=== PATIENT | female | born 1965 | race Caucasian/White ===

== ENCOUNTER → 2017-08-18 | Outpatient (CLI) | payer BC ==
--- NOTE | 2017-08-18 11:20 | US ---
EXAMINATION TYPE: US abdomen limited DATE OF EXAM: 08/18/2017 COMPARISON: NONE CLINICAL HISTORY: R10.11 Right Upper Quad Pain. RUQ pain, vomiting EXAM MEASUREMENTS: Liver Length: 14.1 cm Gallbladder Wall: 0.2 cm CBD: 0.2 cm Right Kidney: 12.4 x 4.1 x 5.6 cm Technical limitations due to patient's body habitus and large amount of overlying bowel content Pancreas: Obscured by bowel gas Liver: Obscured by overlying bowel gas. Gallbladder: no evidence of stones Evidence for sonographic Cook's sign: no CBD: wnl Right Kidney: no evidence of hydronephrosis or mass as visualized Visualized portion of liver is heterogeneously hyperechoic. Evaluation for focal masses is suboptimal due to the heterogeneity. There is oval 3.0 cm simple appearing cyst with increased through transmis aung on images saved. IMPRESSION: Suboptimal study but no gallstones or ultrasound evidence for acute cholecystitis. Probab le diffuse fatty infiltration of liver is noted.
== END | disposition home or self-care (01) ==
LOC: RADUSWWP 10:20
PROVIDERS: ATTEND Internal Medicine
DX: R10.11 Right upper quadrant pain (principal)
CPT/HCPCS: 76705

== ENCOUNTER → 2017-11-02 | Outpatient (CLI) | payer BC ==
--- NOTE | 2017-11-02 14:05 | MM ---
Reason for exam: screening (asymptomatic). Last mammogram was performed 3 years and 9 months ago. History: Patient is postmenopausal, has history of other cancer at age 47, and had first child at age 32. Family history of breast cancer in maternal aunt at age 40. Benign excisional biopsy of the left breast, December 18, 2011. Took hormonal contraceptives for 16 years beginning at age 16. Physical Findings: A clinical breast exam by your physician is recommended on an annual basis and results should be correlated with mammographic findings. MG Screening Mammo w CAD Bilateral CC and MLO view(s) were taken. Prior study comparison: September 15, 2016, mammogram. September 12, 2015, mammogram. June 21, 2013, bilateral digital screening mammo w/CAD. The breast tissue is heterogeneously dense. This may lower the sensitivity of mammography. No suspicious abnormality. No significant changes when compared with prior studies. ASSESSMENT: Negative, BI-RAD 1 RECOMMENDATION: Routine screening mammogram of both breasts in 1 year. Manage on a clinical basis with regard to left breast burning. If there is focal pain or palpable mass a diagnostic left mammogram is recommended.
== END | disposition home or self-care (01) ==
LOC: RADMAMWWP 06:57
PROVIDERS: ATTEND Obstetrics & Gynecology
DX: Z12.31 Encounter for screening mammogram for malignant neoplasm of breast (principal)
CPT/HCPCS: 77067

== ENCOUNTER → 2018-02-14 | Outpatient (CLI) | payer BC ==
--- NOTE | 2018-02-14 09:33 | USB ---
Reason for exam: clinical finding. History: Patient is postmenopausal, has history of other cancer at age 47, and had first child at age 32. Family history of breast cancer in maternal aunt at age 40. Benign excisional biopsy of the left breast, December 18, 2011. Took hormonal contraceptives for 16 years beginning at age 16. 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 US Breast LT Left complete breast ultrasound includes all four quadrants, the retroareolar region and axilla. Finding demonstrates a 0.5 x 1.4 x 0.4cm oval cluster at 1 o'clock, a 0.7 x 0.6 x 0.7cm taller than wide, mixed, hypoechoic lesion at 2 o'clock for which a biopsy is recommended, a 0.5 x 0.4 x 0.4cm oval, solid lesion at 3 o'clock, a 0.6 x 0.4 x 0.4cm oval, solid lesion at 9 o'clock and a 0.7 x 0.6 x 0.6cm oval, solid lesion at 10 o'clock. These results were verbally communicated with the patient and result sheet given to the patient on 02/14/18. ASSESSMENT: Suspicious, BI-RAD 4 RECOMMENDATION: Ultrasound core biopsy of the left breast. Called with mammographic findings and has scheduled an appointment for the patient for 03/02/18 at 3:[address] Bunch. Biopsy scheduled for 02/24/18 at 10:00. PRELIMINARY REPORT CALLED AND FAXED TO DR. BUNCH ON 02/14/18.
== END | disposition home or self-care (01) ==
LOC: RADUSWWP 06:58
PROVIDERS: ATTEND Surgery
DX: N64.4 Mastodynia (principal)

== ENCOUNTER → 2018-02-24 | Day surgery (SDC) | payer BC ==
[2018-02-24 09:35] VITALS: RESP 12
[2018-02-24 10:47] VITALS: BP 121/75; PULSE 67; TEMP 97.9
--- NOTE | 2018-02-24 11:42 | USB ---
EXAMINATION TYPE: US biopsy breast VAD LT, MG diagnostic mammo LT wo CAD DATE OF EXAM: 02/24/2018 CLINICAL HISTORY: R92.87 Abn mammo. Left breast mass for which ultrasound- guided core needle biopsy was recommended. TECHNIQUE: Ultrasound guided core biopsy of left breast. COMPARISON: 02/14/2018 FINDINGS: The procedure of ultrasound guided core biopsy was explained to the patient. Benefits, alternatives, and risks were discussed. An informed consent was then obtained. Preprocedural timeout was performed. The patient was placed in supine positioning for imaging and for the procedure. The overlying skin was prepped and draped in usual sterile fashion. 10 cc of lidocaine was used as anesthetic into the skin and an cc of lidocaine with epinephrine subcutaneous tissue up to the 0.7 x 0.7 x 0.6 cm solid appearing mass within dense fibroglandular tissue at the 2:00 location in the left breast. Under ultrasound guidance, a 12-gauge vacuum assisted biopsy gun device was used to obtain 4 core samples. Following this, a ribbon-shaped biopsy marker was left in lesion. Post procedure mammogram demonstrates appropriate placement of this biopsy marker without migration. The patient tolerated the procedure well with development of a small hematoma, but subsided with probe pressure. This was reevaluated after pressure was held by myself, Dr. Rios, sonographically with no enlargement. Additionally at this time when evaluating the hematoma a small palpable mass was felt at the 3:00 position within the left breast. Targeted sonography demonstrates a thrombosed superficial vessel away from the biopsy site. The patient was kept in the radiology department for short stay after the procedure and then discharged home in stable condition. IMPRESSION: 1. Successful, uncomplicated ultrasound guided core biopsy of a 0.7 x 0.7 x 0.6 cm mass within dense glandular tissue at the 2:00 location within the left breast, full pathology results to follow. 2. 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 Pathology Results: Malignant LEFT BREAST, NEEDLE CORE BIOPSY: INVASIVE LOBULAR CARCINOMA WITH AREAS OF TUBULAR GROWTH PATTERN. LOW GRADE LOBULAR CARCINOMA IN SITU. COARSE INTRADUCTAL MINERALIZATIONS ARE NOT IDENTIFIED. E-CADHERIN DOES NOT REACT WITH INFILTRATING OR IN-SITU CARCINOMA. CYTOKERATIN 5 /6 STAINS MYOEPITHELIAL CELLS OF LCIS BUT IS NOT REACTIVE WITH INFILTRATING CARCINOMA, IMMUNOPEROXIDASE STAIN CONTROL SECTIONS DOCUMENT GOOD PERFORMANCE. Recommendation Surgical consult of the left breast. MRI could be considered pre-operatively to evaluate extent of diseast given lobular carcinoma can be mammographically occult and may be bilateral. MTDD
== END ==
LOC: RADUSWWP 08:58
PROVIDERS: ATTEND Surgery
DX: C50.412 Malignant neoplasm of upper-outer quadrant of left female breast (principal); Z88.2 Allergy status to sulfonamides
CPT/HCPCS: 88305; 88342; 88341; 77065; 19083; A4648; J2001

== ENCOUNTER → 2018-03-09 | Day surgery (SDC) | payer BC ==
[2018-03-09 07:27] VITALS: RESP 16; TEMP 98.4; BMI 40.3
[2018-03-09 08:55] VITALS: BP 114/69; PULSE 50
--- NOTE | 2018-03-09 09:47 | USB ---
EXAMINATION TYPE: US breast aspiration single LT, US biopsy breast add'l VAD LT , US biopsy breast VAD LT, MG diagnostic mammo LT wo CAD DATE OF EXAM: 03/09/2018 CLINICAL HISTORY: R92.8 abn mammo. TECHNIQUE: Ultrasound guided core biopsy and cyst aspiration of left 1:00 breast. Core biopsy hyperechoic area left 3:00 COMPARISON: NONE FINDINGS: The procedure of ultrasound guided core biopsy was explained to the patient. Benefits, alternatives, and risks were discussed. An informed consent was then obtained. The patient was placed in supine positioning for imaging and for the procedure. The overlying skin was prepped and draped in usual sterile fashion. Lidocaine buffered with bicarbonate was used as anesthetic into the skin and subcutaneous tissue up to areas of concern within the left breast. Left breast 1:00 position: Cystic area with internal debris at the left 1:00 position was localized sonographically. 18-gauge spinal needle was introduced and approximately 0.2 cc of bloody aspirate was obtained. Procedure was then converted stereotactic core biopsy given persistent abnormality. 3 core samples were obtained followed by placement of the microclip marker. Left breast 3:00 position: Hyperechoic area left 3:00 position was localized sonographically. 3 core samples were obtained followed by placement of microclip marker device. Postprocedural mammogram demonstrates appropriate placement of clip markers. The patient tolerated the procedure well without any immediate complication. The patient was kept in the radiology department for short stay after the procedure and then discharged home in stable condition. IMPRESSION: Successful, uncomplicated ultrasound guided core biopsy of areas of concern in the left breast, full pathology results to follow. Pathology Results: Malignant BREAST, LEFT, SITE A ONE O'CLOCK, ASPIRATE: Degenerated cellular material with macrophages, clusters of bland ductal and apocrine cells consistent with fibrocystic changes. A. BREAST, LEFT, SITE A ONE O'CLOCK, CORE BIOPSY: Invasive lobular carcinoma. See Surgical Pathology Cancer Case Summary and comment. B. BREAST, LEFT, SITE B THREE O'CLOCK, CORE BIOPSY: Scanty fragments of benign breast tissue with focal fibrosis and prominent adipose tissue. See comment. Recommendation Surgical consult of the left breast. A. cyst aspiration-benign B. invasive lobular-therapy and follow up C. questionable inadequate sample verus benign-consider MRI MTDD
== END ==
LOC: RADUSWWP 07:03
PROVIDERS: ATTEND Surgery
DX: C50.412 Malignant neoplasm of upper-outer quadrant of left female breast (principal); Z88.2 Allergy status to sulfonamides
CPT/HCPCS: 88305; 88173; 88342; 88341; 77065; 76942; 19000; 19083; 19084; A4648; J2001

== ENCOUNTER → 2018-03-11 | Outpatient (CLI) | payer BC ==
--- NOTE | 2018-03-14 10:02 | USB ---
Reason for exam: clinical finding. History: Patient is postmenopausal, has history of breast cancer at age 52, has history of other cancer at age 47, and had first child at age 32. Family history of breast cancer in maternal aunt at age 40. Malignant US biopsy breast VAD LT of the left breast, February 24, 2018. Benign excisional biopsy of the left breast, December 18, 2011. Took hormonal contraceptives for 16 years beginning at age 16. Indicated problem(s): lump or thickening in the right breast. Physical Findings: Nurse Summary: left breast outer aspect bruising, tenderness, steri strips with probable 1 x 2cm hematoma near biopsy, right breast upper outer quadrant nodularity, all soft, movable tissue (nurse ts). US Breast RT Right complete breast ultrasound includes all four quadrants, the retroareolar region and axilla. Finding demonstrates no cystic or solid lesion seen. No suspicious sonographic finding. No solid or cystic mass. These results were verbally communicated with the patient and result sheet given to the patient on 03/11/18. ASSESSMENT: Negative, BI-RAD 1 RECOMMENDATION: Breast MRI. (could be considered pre-operatively)
== END | disposition home or self-care (01) ==
LOC: RADUSWWP 12:54
PROVIDERS: ATTEND Surgery
DX: C50.911 Malignant neoplasm of unspecified site of right female breast (principal)

== ENCOUNTER → 2018-03-21 | Outpatient (CLI) | payer BC ==
--- NOTE | 2018-03-22 12:35 | BMR ---
EXAMINATION TYPE: MR breast BILAT wo/w con DATE OF EXAM: 03/22/2018 COMPARISON: Exams dating back to 11/02/2017 HISTORY: Left Side Biopsy, 02/24/2018, 03/09/2018 [facility], Gadavist 11ml. Biopsy-proven invasive lobular carcinoma at the 2:00 location within the left breast with the primary mass measuring 0.7 x 0 .7 x 0.6 cm sonographically additional 1:00 left breast biopsy/aspiration-benign and 3:00 left breast biopsy demonstrating focal fibrosis, possible inadequate sample. Negative right breast ultrasound on 03/11/2018. TECHNIQUE: A series of fat and water weighted images in the long and short axis views of both breasts are obtained in conjunction with dynamic contrast MRI with subtraction technique. The patient was i njected with 11 mL intravenous Gadavist gadolinium contrast. Three-dimensional and additional postp rocessing imaging is created on independent workstation and reviewed during official interpretation o f this study. FINDINGS: The breasts are composed of heterogenous fibroglandular tissue and there is mild symmetric background parenchymal enhancement. Susceptibility artifact are noted at the 1:00, 2:00 and 3:00 positions. There is no abnormal enhancem ent at the area of cyst aspiration at the 1:00 position. Clumped nonmass enhancement is seen within t he upper outer quadrant of the left breast at middle depth extending over 3.2 cm in anterior posterio r dimension with the biopsy marker at the most posterior aspect on T1 fat-sat postcontrast series 701 image 344. This extends approximately 1.5 cm in craniocaudal dimension. Overall there is mixed enhan cement, predominantly persistent and plateau although foci of washout kinetics are also seen. Additionally approximately 5.2 cm from the nipple at the 2:30-3:00 position within the left breast 1. 9 cm anterior lateral to the abnormal enhancement from the biopsy-proven carcinoma there is a 7 mm ma ss that demonstrates suspicious type III washout kinetics. This is marked on series 701 image 363. No suspicious mass or nodule mass enhancement is seen within the right breast. Few foci with persiste nt kinetics are attributable to background parenchymal enhancement. No suspicious internal mammary, intramammary or axillary adenopathy is seen within either breast. IMPRESSION: BI-RADS [id number] left breast invasive lobular carcinoma. 1. The biopsy-proven invasive lobular carcinoma corresponds to an area of clumped nonmass enhancement in the upper outer quadrant of the left breast extending over 3.2 cm in length and 1.5 cm in cranioc audal dimension. 2. Additional suspicious 7 mm mass in the left breast approximately 1.9 cm anterior lateral to the bi opsy proven carcinoma is seen within the same quadrant suspicious for multifocal disease. No sonograp hic correlate was seen on the exam of 02/14/2018 and therefore MRI guided biopsy is recommended if marcia ast conservation therapy is pursued. 3. No evidence of bilateral suspicious internal mammary, intramammary or axillary adenopathy.
== END | disposition home or self-care (01) ==
LOC: RADMRIMAIN 20:32
PROVIDERS: ATTEND Surgery
DX: C50.412 Malignant neoplasm of upper-outer quadrant of left female breast (principal)
CPT/HCPCS: 77059; 0159T; A9581

== ENCOUNTER 2018-04-18 11:50 | Day surgery (SDC) | payer BC ==
[2018-04-18 12:31] VITALS: BP 138/58; PULSE 62; RESP 16; TEMP 98
[2018-04-18] MEDS ORDERED: ALPRAZolam 0.5 MG TAB PO STA (12:42)
--- NOTE | 2018-04-18 15:24 | BMR ---
EXAMINATION TYPE: MR breast biopsy w/vad LEFT DATE OF EXAM: 04/18/2018 COMPARISON: Exams dating back to 11/02/2017 HISTORY: Biopsy-proven invasive lobular carcinoma at the 2:00 position within the left breast. TECHNIQUE: A series of fat and water weighted images in the long and short axis views of both breasts are obtained in conjunction with dynamic contrast MRI with subtraction technique. The patient was i njected with 11.5 mL intravenous Gadavist gadolinium contrast. Three-dimensional and additional pos tprocessing imaging is created on independent workstation and reviewed during official interpretation of this study. FINDINGS: The previously seen 7 mm mass at the 2 to 3:00 position approximately 5.2 cm in the nipple and 1.9 cm anterolateral to the area of abnormal enhancement corresponding the biopsy-proven lobular carcinoma was not reproduced despite 2 runs of contrast with decreased compression on the second evaluation. Ex tensive review of the provided images was performed with no definitive corresponding abnormality. Fin dings were discussed both with the patient and the ordering physician directly after biopsy attempt. IMPRESSION: BI-RADS 6-biopsy proven left breast invasive lobular carcinoma. 1. The 7 mm MRI mass approximately 5.2 cm from the nipple located 1.9 cm anterolateral to the biopsy- proven invasive lobular carcinoma was not reproducible despite extensive evaluation. If lumpectomy is considered recommendation would be for wide excision in this area with short-term follow-up MRI post lumpectomy.
== END 2018-04-18 15:00 | disposition home or self-care (01) ==
LOC: RADMRIMAIN 11:50
PROVIDERS: ATTEND Surgery
DX: C50.912 Malignant neoplasm of unspecified site of left female breast (principal)
CPT/HCPCS: 0159T; 19085; A9581

== ENCOUNTER → 2018-11-09 | Outpatient (CLI) | payer BC ==
--- NOTE | 2018-11-09 08:09 | MM ---
Reason for exam: follow-up at short interval from prior study. Last mammogram was performed 8 months ago. History: Patient is postmenopausal, has history of breast cancer at age 52, has history of other cancer at age 47, and had first child at age 32. Family history of breast cancer in maternal aunt at age 40. MR breast biopsy w/vad LEFT of the left breast, April 18, 2018. Benign US breast aspiration single LT of the left breast, March 09, 2018. Malignant US biopsy breast VAD LT of the left breast, March 09, 2018. Malignant US biopsy breast add'l VAD LT of the left breast, March 09, 2018. Malignant US biopsy breast VAD LT of the left breast, February 24, 2018. Benign excisional biopsy of the left breast, December 18, 2011. Took hormonal contraceptives for 16 years beginning at age 16. Physical Findings: Nurse did not find any significant physical abnormalities on exam. MG 3D Diag Mammo W/Cad RT CC, MLO, XCCL, and ML view(s) were taken of the right breast. Prior study comparison: March 09, 2018, left breast MG diagnostic mammo LT wo CAD. February 24, 2018, left breast MG diagnostic mammo LT wo CAD. The breast tissue is heterogeneously dense. This may lower the sensitivity of mammography. There is no discrete abnormality. No significant new findings when compared with previous films. These results were verbally communicated with the patient and result sheet given to the patient on 11/09/18. ASSESSMENT: Negative, BI-RAD 1 RECOMMENDATION: Follow-up diagnostic mammogram of the right breast in 1 year.
== END | disposition home or self-care (01) ==
LOC: RADMAMWWP 06:49
PROVIDERS: ATTEND Obstetrics & Gynecology
DX: R92.8 Other abnormal and inconclusive findings on diagnostic imaging of breast (principal); Z85.3 Personal history of malignant neoplasm of breast
CPT/HCPCS: 77061; 77065

== ENCOUNTER → 2019-07-12 | Outpatient (CLI) | payer BC ==
--- NOTE | 2019-07-12 12:16 | USB ---
Reason for exam: clinical finding. History: Patient is postmenopausal, has history of breast cancer at age 52, has history of other cancer at age 47, and had first child at age 32. Family history of breast cancer in maternal aunt at age 40. MR breast biopsy w/vad LEFT of the left breast, April 18, 2018. Benign US breast aspiration single LT of the left breast, March 09, 2018. Malignant US biopsy breast VAD LT of the left breast, March 09, 2018. Malignant US biopsy breast add'l VAD LT of the left breast, March 09, 2018. Malignant US biopsy breast VAD LT of the left breast, February 24, 2018. Benign excisional biopsy of the left breast, December 18, 2011. Took hormonal contraceptives for 16 years beginning at age 16. Indicated problem(s): pain in the right breast. 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 US Breast RT Right complete breast ultrasound includes all four quadrants, the retroareolar region and axilla. Finding demonstrates a 0.8 x 0.7 x 0.6cm oval, hyperechoic lesion at 3 o'clock, probable lipoma, a 0.5 x 0.5 x 0.3cm oval, irregular, complex, cystic lesion at 7 o'clock, complicated cyst and a 0.4 x 0.3 x 0.3cm oval, cystic lesion at 8 o'clock, small cyst. These results were verbally communicated with the patient and result sheet given to the patient on 07/12/19. ASSESSMENT: Benign, BI-RAD 2 RECOMMENDATION: Breast MRI of the right breast. Manage patient on a clinical basis. MRI also recommended in this patient with prior central lateral lobular carcinoma. Routine screening mammogram of both breasts in 4 months. Back on schedule.
== END | disposition home or self-care (01) ==
LOC: RADUSWWP 10:11
PROVIDERS: ATTEND Surgery
DX: N64.4 Mastodynia (principal)

== ENCOUNTER → 2019-07-19 | Outpatient (CLI) | payer BC ==
--- NOTE | 2019-07-21 14:19 | BMR ---
EXAMINATION TYPE: MR breast BILAT wo/w con DATE OF EXAM: 07/19/2019 COMPARISON: Complete right breast ultrasound dated 07/12/2019. MRI of the bilateral breasts dated 03/21. Left breast biopsy dated 04/18/2018. HISTORY: Abnormal Mammo / Hx Breast Cancer/ Rt lateral side pain in breast/left side mastectomy TECHNIQUE: A series of fat and water weighted images in the long and short axis views of both breasts are obtained in conjunction with dynamic contrast MRI with subtraction technique. The patient was i njected with 12 mL intravenous Gadavist gadolinium contrast. Three-dimensional and additional postp rocessing imaging is created on independent workstation and reviewed during official interpretation o f this study. FINDINGS: Left mastectomy has been performed. There is a retropectoral left breast implant noted. The re are few nonenlarged left axillary lymph nodes are seen. No abnormal internal mammary lymph nodes o n the left. Post therapy changes are seen on the left as numerous areas of susceptibility artifact ar e seen and skin thickening, post radiation. Prominent 7 mm short axis lymph node is seen on the left on T2 axial fat sat image 30. The right breast is composed of heterogenous fibroglandular tissue demo nstrating mild background enhancement. No new suspicious enhancement is seen within the right breast. No suspicious internal mammary, intramammary, or axillary adenopathy. IMPRESSION: BI-RADS 0-incomplete. Additional imaging needed. 1. Prominent left lymph node in the axillary tail measures 7 mm in short axis. Ultrasound is recommen ded to assess for any cortical thickening. 2. Post meniscectomy change on the left. Post therapy change in the left with skin thickening. 3. No MRI evidence of malignancy within the right breast.
== END | disposition home or self-care (01) ==
LOC: RADMRIMAIN 20:53
PROVIDERS: ATTEND Surgery
DX: R92.8 Other abnormal and inconclusive findings on diagnostic imaging of breast (principal)
CPT/HCPCS: 77049; C8937; A9585

== ENCOUNTER → 2019-08-02 | Outpatient (CLI) | payer BC ==
--- NOTE | 2019-08-04 08:57 | USB ---
Reason for exam: clinical finding. History: Patient is postmenopausal, has history of breast cancer at age 52, has history of other cancer at age 47, and had first child at age 32. Family history of breast cancer in maternal aunt at age 40. MR breast biopsy w/vad LEFT of the left breast, April 18, 2018. Benign US breast aspiration single LT of the left breast, March 09, 2018. Malignant US biopsy breast VAD LT of the left breast, March 09, 2018. Malignant US biopsy breast add'l VAD LT of the left breast, March 09, 2018. Malignant US biopsy breast VAD LT of the left breast, February 24, 2018. Benign excisional biopsy of the left breast, December 18, 2011. Took hormonal contraceptives for 16 years beginning at age 16. Physical Findings: Nurse did not find any significant physical abnormalities on exam. US Breast Axilla LT Left breast axilla ultrasound demonstrates a 1.2 x 0.5 x 0.9cm lymph node at the axillary tail and a 0.7 x 0.4 x 0.7cm lymph node at the axillary tail, rounded contour, corresponds to MRI, slightly larger that MR or 03/21/18. Precautionary biopsy should be considered. These results were verbally communicated with the patient and result sheet given to the patient on 08/02/19. ASSESSMENT: Suspicious, BI-RAD 4 RECOMMENDATION: Surgical consultation and ultrasound core biopsy of the left breast. (left rounded lymph node, if biopsy is forgone 3 month follow up ultrasound would be recommended) Called office with mammographic findings and has scheduled an appointment for the patient for 08/09/19 at 2:[address] Bunch. Biopsy scheduled for 08/17/19 at 2:20. PRELIMINARY REPORT CALLED AND FAXED TO DR. BUNCH ON 08/04/19.
== END | disposition home or self-care (01) ==
LOC: RADUSWWP 14:13
PROVIDERS: ATTEND Surgery
DX: R59.9 Enlarged lymph nodes, unspecified (principal)

== ENCOUNTER → 2019-08-17 | Day surgery (SDC) | payer BC ==
[2019-08-17 13:39] VITALS: RESP 16; BMI 41.1
[2019-08-17 14:34] VITALS: BP 158/88; PULSE 78; TEMP 97.8
--- NOTE | 2019-08-17 14:35 | USB ---
EXAMINATION TYPE: US biopsy breast VAD LT DATE OF EXAM: 08/17/2019 CLINICAL HISTORY: N63 LUMP, AXILLA. TECHNIQUE: Ultrasound guided core biopsy of left axillary lymph node COMPARISON: NONE FINDINGS: The procedure of ultrasound guided core biopsy was explained to the patient. Benefits, alternatives, and risks were discussed. An informed consent was then obtained. The patient was placed in supine positioning for imaging and for the procedure. The overlying skin was prepped and draped in usual sterile fashion. Lidocaine buffered with bicarbonate was used as anesthetic into the skin and subcutaneous tissue up to area of concern in the left axillary lymph node. Under ultrasound guidance, a 12-gauge vacuum assisted biopsy gun device was used to obtain 3 core samples. Following this, a biopsy clip was left in lesion. The patient tolerated the procedure well without any immediate complication. The patient was kept in the radiology department for short stay after the procedure and then discharged home in stable condition. IMPRESSION: Successful, uncomplicated ultrasound guided core biopsy of area of concern in the left axillary lymph node , full pathology results to follow. 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 Appropriately controlled immunohistochemical studies for CAM5.6, and MINOR-3 are negative for metastatic carcinoma. CD68 shows focal sinus histiocytosis. Recommendation Follow up ultrasound of the left breast in 6 months. MTDD
== END ==
LOC: RADUSWWP 13:19
PROVIDERS: ATTEND Surgery
DX: D76.3 Other histiocytosis syndromes (principal); R92.8 Other abnormal and inconclusive findings on diagnostic imaging of breast; Z88.2 Allergy status to sulfonamides
CPT/HCPCS: 88305; 88342; 88341; 76942; 38505; J2001

== ENCOUNTER → 2019-11-24 | Outpatient (CLI) | payer BC ==
--- NOTE | 2019-11-24 08:23 | MM ---
Reason for exam: additional evaluation requested from prior study. Last mammogram was performed 1 year ago. History: Patient is postmenopausal, has history of breast cancer at age 52, has history of other cancer at age 44, history of high-risk lesion on a previous biopsy, and had first child at age 32. Family history of breast cancer in 2 maternal aunts at age 40. Benign US biopsy breast VAD LT of the left breast, August 17, 2019. Reduction of the right breast, February 2019. MR breast biopsy w/vad LEFT of the left breast, April 18, 2018. Benign US breast aspiration single LT of the left breast, March 09, 2018. Malignant US biopsy breast VAD LT of the left breast, March 09, 2018. Malignant US biopsy breast add'l VAD LT of the left breast, March 09, 2018. Malignant US biopsy breast VAD LT of the left breast, February 24, 2018. Benign excisional biopsy of the left breast, December 18, 2011. Mastectomy of the left breast. Took hormonal contraceptives for 16 years beginning at age 16. Taking antineoplastic for 1 year. Physical Findings: Nurse did not find any significant physical abnormalities on exam. MG 3D Diag Mammo W/Cad RT CC and MLO view(s) were taken of the right breast. Prior study comparison: November 09, 2018, right breast MG 3d diag mammo w/cad RT. March 09, 2018, left breast MG diagnostic mammo LT wo CAD. November 02, 2017, bilateral MG screening mammo w CAD. The breast tissue is heterogeneously dense. This may lower the sensitivity of mammography. No significant new findings when compared with previous films. These results were verbally communicated with the patient and result sheet given to the patient on 11/24/19. ASSESSMENT: Benign, BI-RAD 2 RECOMMENDATION: Follow-up diagnostic mammogram of the right breast in 1 year.
== END | disposition home or self-care (01) ==
LOC: RADMAMWWP 06:55
PROVIDERS: ATTEND Obstetrics & Gynecology
DX: Z08 Encounter for follow-up examination after completed treatment for malignant neoplasm (principal); Z85.3 Personal history of malignant neoplasm of breast
CPT/HCPCS: 77061; 77065

== ENCOUNTER → 2020-03-22 | Outpatient (CLI) | payer BC ==
--- NOTE | 2020-03-25 09:21 | USB ---
Reason for exam: clinical finding. History: Patient is postmenopausal, has history of breast cancer at age 52, has history of other cancer at age 44, history of high-risk lesion on a previous biopsy, and had first child at age 32. Family history of breast cancer in 2 maternal aunts at age 40. Benign US biopsy breast VAD LT of the left breast, August 17, 2019. Reduction of the right breast, February 2019. MR breast biopsy w/vad LEFT of the left breast, April 18, 2018. Benign US breast aspiration single LT of the left breast, March 09, 2018. Malignant US biopsy breast VAD LT of the left breast, March 09, 2018. Malignant US biopsy breast add'l VAD LT of the left breast, March 09, 2018. Malignant US biopsy breast VAD LT of the left breast, February 24, 2018. Benign excisional biopsy of the left breast, December 18, 2011. Mastectomy of the left breast. Took hormonal contraceptives for 16 years beginning at age 16. Taking antineoplastic for 1 year. Physical Findings: Nurse Summary: all soft, nodular, movable (nurse ts). US Breast Limited BILAT Technologist: Kaley Olea Right complete breast ultrasound includes all four quadrants, the retroareolar region and axilla. Finding demonstrates a 0.7 x 1.0 x 0.4cm shadowing lesion at 9 o'clock, difficult to see in enhanced view and a 1.0 x 0.7 x 0.5cm hyperechoic lesion at 3 o'clock. Left limited breast ultrasound including focal area of concern, retroareolar and axilla demonstrates no cystic or solid lesion seen. These results were verbally communicated with the patient and result sheet given to the patient on 03/22/20. ASSESSMENT: Suspicious, BI-RAD 4 RECOMMENDATION: Ultrasound core biopsy of the right breast. Called Dr. Cervantes's office with mammographic findings and has scheduled an appointment for the patient for 04/08/[address] Bunch. Biopsy scheduled for 04/01/20. PRELIMINARY REPORT CALLED AND FAXED TO DR. BUNCH ON 03/25/20.
== END | disposition home or self-care (01) ==
LOC: RADUSWWP 08:10
PROVIDERS: ATTEND Obstetrics & Gynecology
DX: R92.8 Other abnormal and inconclusive findings on diagnostic imaging of breast (principal); Z85.3 Personal history of malignant neoplasm of breast

== ENCOUNTER → 2020-04-01 | Day surgery (SDC) | payer BC ==
[2020-04-01 09:48] VITALS: RESP 16; TEMP 98.6
[2020-04-01 11:28] VITALS: BP 125/76; PULSE 60
--- NOTE | 2020-04-01 12:01 | USB ---
EXAMINATION TYPE: US biopsy breast VAD RT, MG post biopsy diagnostic mammo RT wo CAD DATE OF EXAM: 04/01/2020 CLINICAL HISTORY: 54-year-old female R92.8 ABN MAMMO. Personal history of left breast cancer status post mastectomy and breast reconstruction. TECHNIQUE: Ultrasound guided core biopsy of the right breast. COMPARISON: 03/22/2020 FINDINGS: The procedure of ultrasound guided core biopsy was explained to the patient. Benefits, alternatives, and risks were discussed. An informed consent was then obtained. The intended biopsy targeted at the 9:00 position was identified. Again, we note that this is most apparent on radial scanning but becomes less defined on antiradial scanning. The 3:00 echogenic area likely represents a lipoma and should be reassessed in 6 months. The patient was placed in supine positioning for imaging and for the procedure. The overlying skin was prepped and draped in usual sterile fashion. Lidocaine was used as anesthetic into the skin and subcutaneous tissue up to area of concern in the 9:00 right breast. Under ultrasound guidance, a 13-gauge vacuum-assisted mammotome Elite biopsy gun device was used to obtain 5 core samples. Following this, a coil clip was left in lesion. The patient tolerated the procedure well without any immediate complication. The patient was kept in the radiology department for short stay after the procedure and then discharged home in stable condition. Postbiopsy mammogram shows clip at the 9 to 10:00 position. IMPRESSION: Successful, uncomplicated ultrasound guided core biopsy of area of concern in the 9:00 right breast, full pathology results to follow. Note that this area becomes less defined on antiradial scanning. Six-month follow-up ultrasound will be recommended for the 3:00 echogenic lesion, likely lipoma. Pathology Results: Benign RIGHT BREAST LESION AT 9:00, NEEDLE CORE BIOPSIES: Fibrocystic spectrum disease in dense fibrous breast parenchyma. Calcium oxalate crystals seen. Recommendation Follow up mammogram of the right breast in 6 months. SHANTANUD
== END ==
LOC: RADUSWWP 09:24
PROVIDERS: ATTEND Surgery
DX: N60.11 Diffuse cystic mastopathy of right breast (principal); Z85.3 Personal history of malignant neoplasm of breast; Z90.12 Acquired absence of left breast and nipple
CPT/HCPCS: 88305; 77065; 19083; A4648; J2001

== ENCOUNTER → 2020-10-16 | Outpatient (CLI) | payer BC ==
--- NOTE | 2020-10-16 14:52 | MM ---
Reason for exam: additional evaluation requested from prior study. Last mammogram was performed 6 months ago. History: Patient is postmenopausal, has history of breast cancer at age 52, has history of other cancer at age 44, history of high-risk lesion on a previous biopsy, and had first child at age 32. Family history of breast cancer in 2 maternal aunts at age 40. Benign US biopsy breast VAD RT of the right breast, April 01, 2020. Benign US biopsy breast VAD LT of the left breast, August 17, 2019. Reduction of the right breast, February 2019. MR breast biopsy w/vad LEFT of the left breast, April 18, 2018. Benign US breast aspiration single LT of the left breast, March 09, 2018. Malignant US biopsy breast VAD LT of the left breast, March 09, 2018. Malignant US biopsy breast add'l VAD LT of the left breast, March 09, 2018. Malignant US biopsy breast VAD LT of the left breast, February 24, 2018. Benign excisional biopsy of the left breast, December 18, 2011. Implant in the left breast. 2 mastectomies of the left breast. Took hormonal contraceptives for 16 years beginning at age 16. Taking antineoplastic for 3 years beginning at age 52. Physical Findings: Nurse Summary: 1cm nodule in the right breast at 3 o'clock (nurse mj). MG 3D Diag Mammo W/Cad RT CC and MLO view(s) were taken of the right breast. Prior study comparison: April 01, 2020, right breast MG diagnostic mammo RT wo CAD. November 24, 2019, right breast MG 3d diag mammo w/cad RT. There are scattered fibroglandular densities. Previous mammotome biopsy in the right breast. Medial palpable marker. No significant new findings when compared with previous films. These results were verbally communicated with the patient and result sheet given to the patient on 10/16/20. ASSESSMENT: Incomplete: need additional imaging evaluation, BI-RAD 0 RECOMMENDATION: Ultrasound of both breasts. (axilla)
--- NOTE | 2020-10-16 14:54 | USB ---
Reason for exam: additional evaluation requested from abnormal screening. History: Patient is postmenopausal, has history of breast cancer at age 52, has history of other cancer at age 44, history of high-risk lesion on a previous biopsy, and had first child at age 32. Family history of breast cancer in 2 maternal aunts at age 40. Benign US biopsy breast VAD RT of the right breast, April 01, 2020. Benign US biopsy breast VAD LT of the left breast, August 17, 2019. Reduction of the right breast, February 2019. MR breast biopsy w/vad LEFT of the left breast, April 18, 2018. Benign US breast aspiration single LT of the left breast, March 09, 2018. Malignant US biopsy breast VAD LT of the left breast, March 09, 2018. Malignant US biopsy breast add'l VAD LT of the left breast, March 09, 2018. Malignant US biopsy breast VAD LT of the left breast, February 24, 2018. Benign excisional biopsy of the left breast, December 18, 2011. Implant in the left breast. 2 mastectomies of the left breast. Took hormonal contraceptives for 16 years beginning at age 16. Taking antineoplastic for 3 years beginning at age 52. US Breast Limited BILAT Technologist: Kaley Olea Right complete breast ultrasound includes all four quadrants, the retroareolar region and axilla. Finding demonstrates a 0.9 x 0.9 x 0.4cm oval, hyperechoic lesion at 3 o'clock and a 0.8 x 0.7 x 0.5cm oval, hyperechoic lesion at 2 o'clock. Suggestive of lipomas, benign. Targeted scanning of left axilla shows no solid or cystic lesion. These results were verbally communicated with the patient and result sheet given to the patient on 10/16/20. ASSESSMENT: Benign, BI-RAD 2 RECOMMENDATION: Follow-up diagnostic mammogram of the right breast in 1 year. Manage on a clinical basis with regard to any suspicious palpable area.
== END | disposition home or self-care (01) ==
LOC: RADMAMWWP 12:53
PROVIDERS: ATTEND Internal Medicine
DX: C50.112 Malignant neoplasm of central portion of left female breast (principal); R92.8 Other abnormal and inconclusive findings on diagnostic imaging of breast; Z85.3 Personal history of malignant neoplasm of breast
CPT/HCPCS: 77061; 77065

== ENCOUNTER → 2020-10-23 | Outpatient (CLI) | payer BC ==
[2020-10-23 07:42] LABS: Basophils # (A) 0.1 k/uL (0-0.2); Basophils % (A) 1 %; Eosinophils # (A) 0.2 k/uL (0-0.7); Eosinophils % (A) 4 %; HCT 45.2 % (34.0-46.0); HGB 14.7 gm/dL (11.4-16.0); Lymphocytes # (A) 1.4 k/uL (1.0-4.8); Lymphocytes % (A) 27 %; MCH 27.7 pg (25.0-35.0); MCHC 32.5 g/dL (31.0-37.0); MCV 85.1 fL (80.0-100.0); Mean Platelet Volume 7.4; Monocytes # (A) 0.2 k/uL (0-1.0); Monocytes % (A) 4 %; Neutrophils # (A) 3.4 k/uL (1.3-7.7); Neutrophils % (A) 62 %; Platelet Count 241 k/uL (150-450); RBC 5.31 m/uL (3.80-5.40); RDW 13.4 % (11.5-15.5); WBC 5.5 k/uL (3.8-10.6)
[2020-10-23 12:30] LABS: African American GFR (CKD) 112.3 (60.0-200.0); Albumin 4.8 g/dL (3.80-4.90); Albumin/Globulin Ratio 2.09 (1.60-3.17); Anion Gap 10.9 mmol/L (4.00-12.00); BUN/Creat Ratio 21.43 Ratio (12.00-20.00); Carbon Dioxide 27.1 mmol/L (21.6-31.8); Chol/HDL Ratio 5.49; Globulin 2.3 g/dL (1.6-3.3); Non-African American GFR(CKD) 96.9 (60.0-200.0); Potassium 4.7 mmol/L (3.5-5.5); Total Bilirubin 0.5 mg/dL (0.3-1.2); Total Protein 7.1 g/dL (6.2-8.2)
[2020-10-23 12:40] LABS: T4, Free (Free Thyroxine) 1.9 ng/dL (0.80-1.80)
== END | disposition home or self-care (01) ==
LOC: LABWHC1 07:03
PROVIDERS: ATTEND Internal Medicine
DX: Z00.00 Encounter for general adult medical examination without abnormal findings (principal); K21.9 Gastro-esophageal reflux disease without esophagitis; E03.9 Hypothyroidism, unspecified; E55.9 Vitamin D deficiency, unspecified
CPT/HCPCS: 36415; 80053; 80061; 82306; 84439; 84443; 84481; 85025

== ENCOUNTER → 2020-10-23 | Outpatient (CLI) | payer BC ==
--- NOTE | 2020-10-23 15:16 | BD ---
EXAMINATION TYPE: Axial Bone Density DATE OF EXAM: 10/23/2020 COMPARISON: NONE CLINICAL HISTORY: 55 YR OLD FEMALE....ICD-10 CODE: C50.11 MALIGNANT NEOPLASM; BREAST Height: 65.8 Weight: 261 FRAX RISK QUESTIONS: NOTHING TO NOTE HERE RISK FACTORS HISTORY OF: Active: YES Postmenopausal woman: YES, AT AGE 47 YRS OLD Hyperparathyroidism: NO Adrenal Insufficiency: NO MEDICATIONS: Thyroid Medications: YES, SYNTHROID, FOR ABOUT 30 YRS Additional Medications: ANASTROZOLE, HX OF MASTECTOMY, LT BREAST, REFLUX MEDS, VIT D, Additional History: HX OF BREAST CANCER, LT BREAST MASTECTOMY, 2018, REFLUX, EXAM MEASUREMENTS: Bone mineral densitometry was performed using the [employer] System. Bone mineral density as measured about the Lumbar spine is: ----- L1-L4(G/cm2): 0.986 T Score Values are as follows: ----- L1: -2.9 ----- L2: -1.7 ----- L3: -1.8 ----- L4: -2.2 ----- L1-L4: -1.8 Bone mineral density FIRST BONE DENSITY AT [facility] Bone mineral density about the R hip (g/cm2): 0.990 Bone mineral density about the L hip (g/cm2): 0.980 T Score values are as follows: -----R Neck: -0.8 -----L Neck: -1.1 -----R Total: -0.1 -----L Total: -0.2 Bone mineral density FIRST BONE DENSITY AT [facility] FRAX%s: THERE IS A 5.5% CHANCE FOR A MAJOR OSTEOPOROTIC FX AND A 0.3% FOR HIP.....PROBABILITY FOR FX IN 10 YRS TIME IMPRESSION: Osteopenia (T Score between -2.5 and -1). There is slightly increased risk of fracture and the patient may be considered for treatment. Re-Screen 2-5 years. NOTE: T-SCORE=SD OF THE YOUNG ADULT MEAN.
== END | disposition home or self-care (01) ==
LOC: RADBDWWP 07:06
DX: M85.80 Other specified disorders of bone density and structure, unspecified site (principal); Z51.81 Encounter for therapeutic drug level monitoring; Z79.811 Long term (current) use of aromatase inhibitors; C50.412 Malignant neoplasm of upper-outer quadrant of left female breast
CPT/HCPCS: 77080

== ENCOUNTER → 2020-11-06 | Outpatient (CLI) | payer BC ==
--- NOTE | 2020-11-06 08:52 | CT ---
EXAMINATION TYPE: CT angio head DATE OF EXAM: 11/06/2020 COMPARISON: None HISTORY: Anesthesia of skin, eye and lip left side CT DLP: 1504.00 mGycm CONTRAST: CTA [place] with 3-D reconstruction is performed and without and with IV Contrast, patient i njected with 100 ml mL of Isovue 370. Contrast CTA of the [place] was performed 3-D reconstruction imaging obtained at a separate workstation. Vertebrobasilar system as well as intracranial portions of the internal carotid arterie s and their major tributaries are patent. I cannot exclude a small 2.4 mm aneurysm at the trifurcatio n of the left MCA. Consider MRA correlation. There is a 3.0 x 2.4 cm arachnoid cyst anterior left mid dle cranial fossa. No additional extra-axial lesions seen. Please note MRI provides greater sensitivi ty and specificity. Visualized brain appears grossly unremarkable. IMPRESSION: 1.I cannot exclude a small 2.4 mm aneurysm at the trifurcation of the left MCA. Consider MRA correlat ion. 2.There is a 3.0 x 2.4 cm arachnoid cyst anterior left middle cranial fossa.
== END | disposition home or self-care (01) ==
LOC: RADCTMAIN 07:30
PROVIDERS: ATTEND Internal Medicine
DX: I67.1 Cerebral aneurysm, nonruptured (principal); G93.0 Cerebral cysts
CPT/HCPCS: 70496; Q9967

== ENCOUNTER → 2020-12-20 | Outpatient (CLI) | payer BC | END | disposition home or self-care (01) | LOC: LABWHC1 06:54 | PROVIDERS: ATTEND Internal Medicine | DX: E03.9 Hypothyroidism, unspecified (principal) | CPT/HCPCS: 36415; 84443 ==

== ENCOUNTER → 2021-05-08 | Outpatient (CLI) | payer BC ==
--- NOTE | 2021-05-13 12:01 | USB ---
Reason for exam: clinical finding. History: Patient is postmenopausal, has history of breast cancer at age 52, has history of other cancer at age 44, history of high-risk lesion on a previous biopsy, and had first child at age 32. Family history of breast cancer in 2 maternal aunts at age 40. Benign US biopsy breast VAD RT of the right breast, April 01, 2020. Benign US biopsy breast VAD LT of the left breast, August 17, 2019. Reduction of the right breast, February 2019. MR breast biopsy w/vad LEFT of the left breast, April 18, 2018. Benign US breast aspiration single LT of the left breast, March 09, 2018. Malignant US biopsy breast VAD LT of the left breast, March 09, 2018. Malignant US biopsy breast add'l VAD LT of the left breast, March 09, 2018. Malignant US biopsy breast VAD LT of the left breast, February 24, 2018. Benign excisional biopsy of the left breast, December 18, 2011. Implant in the left breast. 2 mastectomies of the left breast. Took hormonal contraceptives for 16 years beginning at age 16. Taking antineoplastic for 3 years beginning at age 52. Physical Findings: Nurse did not find any significant physical abnormalities on exam. US Breast Limited BILAT Right complete breast ultrasound includes all four quadrants, the retroareolar region and axilla. Finding demonstrates a 6 x 4mm oval, hypoechoic lesion at 2 o'clock, slightly appears blenin on some images not definitive lesion, a 5 x 3 x 7mm oval, hyperechoic lipoma at at 2 o'clock and a 9mm previous biopsy site at 9 o'clock. Left limited breast ultrasound including focal area of concern, retroareolar and axilla demonstrates a 4 x 4mm lymph node at the axilla. These results were verbally communicated with the patient and result sheet given to the patient on 05/08/21. ASSESSMENT: Probably benign, BI-RAD 3 RECOMMENDATION: Follow-up diagnostic mammogram and ultrasound of the right breast in 6 months.
== END | disposition home or self-care (01) ==
LOC: RADUSWWP 07:34
PROVIDERS: ATTEND Family Medicine
DX: N64.89 Other specified disorders of breast (principal); Z78.0 Asymptomatic menopausal state; Z85.3 Personal history of malignant neoplasm of breast; Z80.3 Family history of malignant neoplasm of breast

== ENCOUNTER → 2021-11-13 | Outpatient (CLI) | payer BC ==
--- NOTE | 2021-11-13 11:41 | MM ---
Reason for exam: additional evaluation requested from prior study. Last mammogram was performed 1 year and 1 month ago. History: Patient is postmenopausal, has history of breast cancer at age 52, has history of high-risk lesion on a previous biopsy at age 52, has history of other cancer at age 44, and had first child at age 32. Family history of breast cancer in 2 maternal aunts at age 40. Benign US biopsy breast VAD RT of the right breast, April 01, 2020. Benign US biopsy breast VAD LT of the left breast, August 17, 2019. Reduction of the right breast, February 2019. MR breast biopsy w/vad LEFT of the left breast, April 18, 2018. Benign US breast aspiration single LT of the left breast, March 09, 2018. Malignant US biopsy breast VAD LT of the left breast, March 09, 2018. Malignant US biopsy breast add'l VAD LT of the left breast, March 09, 2018. Malignant US biopsy breast VAD LT of the left breast, February 24, 2018. Reconstruction of the left breast, 2018. Mastectomy of the left breast, 2018. Benign excisional biopsy of the left breast, December 18, 2011. Implant in the left breast. Took hormonal contraceptives for 16 years beginning at age 16. Taking antineoplastic for 3 years beginning at age 52. Physical Findings: Nurse did not find any significant physical abnormalities on exam. MG 3D Diag Mammo W/Cad RT CC, MLO, and XCCL view(s) were taken of the right breast. Prior study comparison: October 16, 2020, right breast MG 3d diag mammo w/cad RT. April 01, 2020, right breast MG diagnostic mammo RT wo CAD. There are scattered fibroglandular densities. Previous mammotome biopsy in the right breast. No significant new findings when compared with previous films. These results were verbally communicated with the patient and result sheet given to the patient on 11/13/21. ASSESSMENT: Incomplete: need additional imaging evaluation, BI-RAD 0 RECOMMENDATION: Ultrasound of the right breast.
--- NOTE | 2021-11-13 11:56 | USB ---
Reason for exam: additional evaluation requested from abnormal screening. History: Patient is postmenopausal, has history of breast cancer at age 52, has history of high-risk lesion on a previous biopsy at age 52, has history of other cancer at age 44, and had first child at age 32. Family history of breast cancer in 2 maternal aunts at age 40. Benign US biopsy breast VAD RT of the right breast, April 01, 2020. Benign US biopsy breast VAD LT of the left breast, August 17, 2019. Reduction of the right breast, February 2019. MR breast biopsy w/vad LEFT of the left breast, April 18, 2018. Benign US breast aspiration single LT of the left breast, March 09, 2018. Malignant US biopsy breast VAD LT of the left breast, March 09, 2018. Malignant US biopsy breast add'l VAD LT of the left breast, March 09, 2018. Malignant US biopsy breast VAD LT of the left breast, February 24, 2018. Reconstruction of the left breast, 2018. Mastectomy of the left breast, 2018. Benign excisional biopsy of the left breast, December 18, 2011. Implant in the left breast. Took hormonal contraceptives for 16 years beginning at age 16. Taking antineoplastic for 3 years beginning at age 52. US Breast Limited RT Right limited breast ultrasound including focal area of concern, retroareolar and axilla demonstrates a 0.8 x 0.7 x 0.4cm hyperechoic lesion at 2 o'clock, likely lipoma and a previous biopsy site with clip at 9 o'clock. The other 2 o'clock area is no longer identified. Scanned 12-3 o'clock and 9 o'clock previous biopsy site. These results were verbally communicated with the patient and result sheet given to the patient on 11/13/21. ASSESSMENT: Benign, BI-RAD 2 RECOMMENDATION: Follow-up diagnostic mammogram of both breasts in 1 year.
== END | disposition home or self-care (01) ==
LOC: RADMAMWWP 08:49
PROVIDERS: ATTEND Obstetrics & Gynecology
DX: R92.8 Other abnormal and inconclusive findings on diagnostic imaging of breast (principal); Z85.3 Personal history of malignant neoplasm of breast; Z78.0 Asymptomatic menopausal state
CPT/HCPCS: 77061; 77065

== ENCOUNTER 2021-12-03 16:51 | Emergency (ER) | payer BC ==
[2021-12-03 16:55] VITALS: TEMP 99
[2021-12-03 18:24] LABS: Basophils % (A) 1 %; Eosinophils # (A) 0.3 k/uL (0-0.7); Eosinophils % (A) 4 %; HCT 43.9 % (34.0-46.0); HGB 14.8 gm/dL (11.4-16.0); Lymphocytes # (A) 1.4 k/uL (1.0-4.8); Lymphocytes % (A) 21 %; MCH 29.6 pg (25.0-35.0); MCHC 33.8 g/dL (31.0-37.0); MCV 87.6 fL (80.0-100.0); Mean Platelet Volume 7.7; Monocytes # (A) 0.3 k/uL (0-1.0); Monocytes % (A) 4 %; Neutrophils # (A) 4.6 k/uL (1.3-7.7); Neutrophils % (A) 69 %; Platelet Count 251 k/uL (150-450); RBC 5.01 m/uL (3.80-5.40); RDW 13.9 % (11.5-15.5); WBC 6.6 k/uL (3.8-10.6)
[2021-12-03 18:34] LABS: African American GFR (CKD) >90 (>60 ml/min/1.73 sqM); Anion Gap 11 mmol/L; Blood Urea Nitrogen 14 mg/dL (7-17); Calcium 9.4 mg/dL (8.4-10.2); Carbon Dioxide 23 mmol/L (22-30); Chloride 107 mmol/L (98-107); Glucose 86 mg/dL (74-99); Non-African American GFR(CKD) >90 (>60 ml/min/1.73 sqM); Potassium 4.2 mmol/L (3.5-5.1); Sodium 141 mmol/L (137-145)
[2021-12-03 18:46] LABS: INR 0.9 (<1.2); Prothrombin Time 9.8 sec (9.0-12.0)
[2021-12-03 18:47] LABS: Partial Thromboplastin Time 18.2 sec (22.0-30.0)
--- NOTE | 2021-12-03 19:27 | CT ---
EXAMINATION TYPE: CT chest angio for PE DATE OF EXAM: 12/03/2021 COMPARISON: None HISTORY: Known knee DVT, concern for PE CT DLP: 627.7 mGycm Automated exposure control for dose reduction was used. CONTRAST: Performed with IV Contrast, patient injected with 100 mL of Isovue 370. Images obtained from the thoracic inlet to the diaphragm with IV contrast. There are Three-D postproc essed images. There is no mediastinal adenopathy. There are no hilar masses. Thoracic aorta is intact. There is no aneurysm or dissection. Ascending aorta measures 3.3 cm. There is normal contrast opacification of the pulmonary arteries. There are no filling defects. Upper abdominal soft tissues are intact. There is some mild right paraspinal interstitial infiltrate. There is no evidence of a pulmonary mass. There is no pleural effusion or pneumothorax. The thoracic spine is intact. There is degenerative hypertrophic spurring. No compression fracture. There is left breast implant noted. IMPRESSION: No evidence of pulmonary embolism. No suspicious pulmonary mass.
[2021-12-03] MEDS ORDERED: APIXABAN 5 MG TAB PO STA (19:38)
--- NOTE | 2021-12-03 19:55 | ED ---
General Adult HPI - General Chief complaint: Extremity Injury, Lower Stated complaint: DVT Time Seen by Provider: 12/03/21 17:38 Source: patient, RN notes reviewed, old records reviewed Mode of arrival: ambulatory Limitations: no limitations - History of Present Illness Initial comments: Patient is a 56-year-old female with past medical history remarkable for acid reflux, thyroid disorder as well as recent surgery on her left leg, recently having her cast removed presents emergency Department complaining of leg swelling. She was following up with her general surgeon for scheduling her colonoscopy which was complaining of left posterior knee pain as well as lower extremity swelling. States her to stay. Patient just returned from a trip to [place] flew home. She is on hormonal therapy. No history of blood clots. Denies chest pain. Does endorse a mild cough as well as occasional shortness of breath, which she states may be chronic. Denies any abdominal pain, nausea, vomiting. His no other acute complaints at this time. Patient is having occasional small amount of bleeding in her stool which is being worked up outpatient. No lightheadedness or weakness. Presents over concern for DVT after she was sent over from ultrasound. Ultrasound was already completed on outpatient basis and did reveal acute or chronic DVT in the posterior left popliteal region. Presents for further workup. - Related Data Home Medications Medication Instructions Recorded Confirmed Lansoprazole [Prevacid] 30 mg PO DAILY 02/21/18 12/03/21 Anastrozole [Arimidex] 1 mg PO DAILY 08/08/19 12/03/21 ALPRAZolam [Xanax] 0.25 mg PO HS PRN 12/03/21 12/03/21 Alendronate Sodium 70 mg PO LEWIS 12/03/21 12/03/21 Levothyroxine Sodium [Synthroid] 25 mcg PO DAILY 12/03/21 12/03/21 Levothyroxine Sodium [Synthroid] 137 mcg PO DAILY 12/03/21 12/03/21 Previous Rx's Medication Instructions Recorded Apixaban [Eliquis Starter Pack 5 - 10 mg PO DIRECTED 30 Days 12/03/21 (for VTE)] #1 each Allergies Allergy/AdvReac Type Severity Reaction Status Date / Time adhesive tape Allergy Rash/Hives Verified 12/03/21 18:02 bacitracin Allergy Rash/Hives Verified 12/03/21 18:02 [From Neosporin ([id number])] neomycin Allergy Rash/Hives Verified 12/03/21 18:02 [From Neosporin ([id number])] polymyxin B Allergy Rash/Hives Verified 12/03/21 18:02 [From Neosporin ([id number])] sulfamethoxazole Allergy Itching Verified 12/03/21 18:02 [From Bactrim] trimethoprim [From Bactrim] Allergy Itching Verified 12/03/21 18:02 Review of Systems ROS Statement: Those systems with pertinent positive or pertinent negative responses have been documented in the HPI. Review of Systems: CONST: Denies fever EYES: Denies blurry vision ENT: Denies nasal congestion C/V: Denies Chest pain RESP: Denies shortness of breath GI: Denies abdominal pain : Denies dysuria SKIN: Denies rash. MSK: Endorses leg swelling, left NEURO: Denies headache ROS Other: All systems not noted in ROS Statement are negative. Past Medical History Past Medical History: Cancer, GERD/Reflux, Thyroid Disorder Additional Past Medical History / Comment(s): melanoma - 2010 on back, left breast Ca - 2017 History of Any Multi-Drug Resistant Organisms: None Reported Past Surgical History: Appendectomy, Breast Surgery, Section, Tubal Ligation Additional Past Surgical History / Comment(s): hx melanoma removed from back in 2010. Total thyroidectomy 1995. Left breast mastectomy 2017 with reconstruction. Right breast reduction February 2019. Past Anesthesia/Blood Transfusion Reactions: Postoperative Nausea & Vomiting (PONV) Past Psychological History: No Psychological Hx Reported Smoking Status: Never smoker Past Alcohol Use History: Occasional Past Drug Use History: None Reported - Past Family History Mother Family Medical History: Cancer Additional Family Medical History / Comment(s): leukemia General Exam - General Exam Comments Initial Comments: General: Appears in no acute distress. HEAD: Normal with no signs of head trauma. EYES: PERRLA, EOMI, conjunctiva normal, no discharge. ENT: Hearing grossly intact, normal oropharynx. RESPIRATORY: Clear breath sounds bilaterally. No wheezes, rales, or rhonchi. C/V: Regular rate and rhythm. S1 and S2 auscultated. Peripheral pulses are 2+ intact throughout. Patient's left lower extremity is slightly more edematous than the right lower extremity. Nonpitting edema. Edema is isolated distal to the knee ABD: Abd is soft, nontender, nondistended EXT: Normal range of motion, no obvious deformity SKIN: No rashes or lesions observed on exposed skin. NEURO: Alert and oriented 4. No focal deficits. Able to ambulate. Limitations: no limitations Course Vital Signs 12/03/21 12/03/21 16:52 20:04 Temperature 99.0 F Pulse Rate 99 85 Respiratory 18 16 Rate Blood Pressure 183/89 129/83 O2 Sat by Pulse 97 98 Oximetry Medical Decision Making - Medical Decision Making Based on the patient's presentation and physical exam, I'm concerned as she has a DVT that is known in her left popliteal vein. She will require anticoagulation. However due to her mild cough and somewhat shortness of jimbo th, I am concerned for possible PE at this time. She does have a known DVT, therefore we will obtain CT imaging of the chest to rule out PE. We also obtain basic laboratory studies, she is being worked up for a chronic suspected GI bleed with pending colonoscopy. She was in agreement this plan. Laboratory studies were remarkable for normal kidney function. CBC is within normal limits including a normal hemoglobin of 14.8. CT PE revealed no acute pulmonary was in. I discussed with the patient the results of her laboratory studies and imaging. Due to her normal hemoglobin as well as chronic concern for GI bleeding, I believe it is safe to start her on anticoagulation at this time. I did advise her to seek medical care if she notices any worsening bleeding. She was in agreement with this plan. She'll be given her first dose of Eliquis here in the department, 10 mg. She'll be given a prescription for a starter pack for this medication, with 10mg BID for 7 days, then 5mg BID after that. She was in agreement with this plan. I provided her with a coupon for Eliquis as well. I will provide the patient with a prescription for Eliquis. I instructed the patient to follow up with their PCP in the next 3 days. I provided contact information for follow up with vascular surgery. I explained that the patient should return to the emergency department if they experience any worsening symptoms. Strict return precautions were discussed with the patient. The patient expressed understanding of these instructions. I answered all questions that the patient had. The patient was discharged home in good condition with their prescriptions and follow up information. - Lab Data Result diagrams: 12/03/21 18:18 03/02/22 18:18 Lab Results 12/03/21 12/03/21 12/03/21 Range/Units 18:18 18:18 18:18 WBC 6.6 (3.8-10.6) k/uL RBC 5.01 (3.80-5.40) m/uL Hgb 14.8 (11.4-16.0) gm/dL Hct 43.9 (34.0-46.0) % MCV 87.6 (80.0-100.0) fL MCH 29.6 (25.0-35.0) pg MCHC 33.8 (31.0-37.0) g/dL RDW 13.9 (11.5-15.5) % Plt Count 251 (150-450) k/uL MPV 7.7 Neutrophils % 69 % Lymphocytes % 21 % Monocytes % 4 % Eosinophils % 4 % Basophils % 1 % Neutrophils # 4.6 (1.3-7.7) k/uL Lymphocytes # 1.4 (1.0-4.8) k/uL Monocytes # 0.3 (0-1.0) k/uL Eosinophils # 0.3 (0-0.7) k/uL Basophils # 0.0 (0-0.2) k/uL PT 9.8 (9.0-12.0) sec INR 0.9 (<1.2) APTT 18.2 L (22.0-30.0) sec Sodium 141 (137-145) mmol/L Potassium 4.2 (3.5-5.1) mmol/L Chloride 107 (98-107) mmol/L Carbon Dioxide 23 (22-30) mmol/L Anion Gap 11 mmol/L BUN 14 (7-17) mg/dL Creatinine 0.71 (0.52-1.04) mg/dL Est GFR (CKD-EPI)AfAm >90 (>60 ml/min/1.73 sqM) Est GFR (CKD-EPI)NonAf >90 (>60 ml/min/1.73 sqM) Glucose 86 (74-99) mg/dL Calcium 9.4 (8.4-10.2) mg/dL Disposition Clinical Impression: DVT (deep venous thrombosis) Disposition: HOME SELF-CARE Condition: Good Instructions (If sedation given, give patient instructions): Deep Vein Thrombosis (ED) Prescriptions: Apixaban [Eliquis Starter Pack (for VTE)] 5 - 10 mg PO DIRECTED 30 Days #1 each Is patient prescribed a controlled substance at d/c from ED?: No Referrals: Ana Santos MD [Primary Care Provider] - 1-2 days Anca Sheldon DO [STAFF PHYSICIAN] - 1-2 days
[2021-12-03 20:05] VITALS: BP 129/83; PULSE 85; RESP 16
== END 2021-12-03 20:04 | disposition home or self-care (01) ==
LOC: EC 16:51
DX: I82.432 Acute embolism and thrombosis of left popliteal vein (principal); K21.9 Gastro-esophageal reflux disease without esophagitis; E07.9 Disorder of thyroid, unspecified; Z79.01 Long term (current) use of anticoagulants; Z88.1 Allergy status to other antibiotic agents; Z88.2 Allergy status to sulfonamides; Z85.3 Personal history of malignant neoplasm of breast; Z90.49 Acquired absence of other specified parts of digestive tract; Z98.51 Tubal ligation status
CPT/HCPCS: 99284; 36415; 80048; 85025; 85610; 85730; 71275; Q9967

== ENCOUNTER → 2021-12-03 | Outpatient (CLI) | payer BC ==
--- NOTE | 2021-12-03 17:04 | US ---
EXAMINATION TYPE: US venous doppler duplex LE LT DATE OF EXAM: 12/03/2021 4:40 PM COMPARISON: NONE CLINICAL HISTORY: R22.42 LOCALIZED SWELLING, MASS AND LUMP, LEFT LOWER EXTREMI. Recent flight. No bl ood thinners. Swelling per patient. SIDE PERFORMED: Left TECHNIQUE: The lower extremity deep venous system is examined utilizing real time linear array sonog blayne with graded compression, doppler sonography and color-flow sonography. VESSELS IMAGED: Common Femoral Vein Deep Femoral Vein Greater Saphenous Vein * Femoral Vein Popliteal Vein Small Saphenous Vein * Proximal Calf Veins (* superficial vessels) Left Leg: Positive for DVT in mid to distal Popliteal vein, nonoccluding. Internal echoes seen. IMPRESSION: There is evidence of some chronic deep vein thrombosis in the popliteal vein. No acute de ep vein thrombosis.
== END | disposition home or self-care (01) ==
LOC: RADUSWWP 16:17
PROVIDERS: ATTEND Surgery
DX: I82.532 Chronic embolism and thrombosis of left popliteal vein (principal)

== ENCOUNTER 2022-01-29 13:09 | Emergency (ER) | payer BC ==
[2022-01-29 13:14] VITALS: BP 151/92; PULSE 81; RESP 16; TEMP 98
--- NOTE | 2022-01-29 13:37 | XR ---
EXAMINATION TYPE: XR chest 2V DATE OF EXAM: 01/29/2022 COMPARISON: Chest x-ray March 11, 2012 HISTORY: Severe right-sided chest pain TECHNIQUE: Frontal and lateral views of the chest are obtained. FINDINGS: There is no suspicious focal air space opacity, pleural effusion, or pneumothorax seen. T he cardiac silhouette size remains within normal limits. The osseous structures are intact. IMPRESSION: No acute process.
[2022-01-29 14:27] LABS: ALT 46 U/L (4-34); AST 41 U/L (14-36); African American GFR (CKD) >90 (>60 ml/min/1.73 sqM); Albumin 4.2 g/dL (3.5-5.0); Alkaline Phosphatase 103 U/L (38-126); Anion Gap 8 mmol/L; Blood Urea Nitrogen 13 mg/dL (7-17); Calcium 9.4 mg/dL (8.4-10.2); Carbon Dioxide 24 mmol/L (22-30); Chloride 106 mmol/L (98-107); Glucose 107 mg/dL (74-99); Magnesium 1.7 mg/dL (1.6-2.3); Non-African American GFR(CKD) >90 (>60 ml/min/1.73 sqM); Potassium 4.2 mmol/L (3.5-5.1); Sodium 138 mmol/L (137-145); Total Bilirubin 0.7 mg/dL (0.2-1.3); Total Protein 7.6 g/dL (6.3-8.2)
[2022-01-29 14:28] LABS: INR 0.9 (<1.2); Partial Thromboplastin Time 23.4 sec (22.0-30.0)
[2022-01-29 14:30] LABS: Basophils # (A) 0.1 k/uL (0-0.2); Basophils % (A) 1 %; Eosinophils # (A) 0.3 k/uL (0-0.7); Eosinophils % (A) 4 %; HCT 43.9 % (34.0-46.0); HGB 13.8 gm/dL (11.4-16.0); Lymphocytes # (A) 1.5 k/uL (1.0-4.8); Lymphocytes % (A) 21 %; MCH 27.7 pg (25.0-35.0); MCHC 31.4 g/dL (31.0-37.0); MCV 88.2 fL (80.0-100.0); Mean Platelet Volume 7.7; Monocytes # (A) 0.3 k/uL (0-1.0); Monocytes % (A) 5 %; Neutrophils % (A) 69 %; Platelet Count 233 k/uL (150-450); RBC 4.97 m/uL (3.80-5.40); RDW 13.5 % (11.5-15.5); WBC 7.3 k/uL (3.8-10.6)
--- NOTE | 2022-01-29 15:41 | ED ---
General Adult HPI - General Chief complaint: Chest Pain Stated complaint: Heart attack Time Seen by Provider: 01/29/22 15:21 Source: patient Mode of arrival: ambulatory Limitations: no limitations - History of Present Illness Initial comments: Dictation was produced using [employer] dictation software. please excuse any grammatical, word or spelling errors. Chief Complaint: 56-year-old female past medical history of breast cancer, pulmo nary embolus presents emergency department for chest pain History of Present Illness: Patient is a 56-year-old female since last night she's been having chest pain. She states that it's a sharp pain that so right anterior chest radiates to her right axilla and into her back. Patient states it's a severity of 6 out of 10. Patient states that it's a sharp pain it's also like a burning sensation to her skin. Patient has no mitigating or exacerbating factors. Patient has history of blood clot. She takes eliquis however has not taken it for the last 3 days due to anticipation for colonoscopy. Colonoscopy in her getting canceled. Patient states that she does not have any numbness and paresthesias to the arms or legs. States that the pain is not severe. It is not substernal and radiating to the back. The ROS documented in this emergency department record has been reviewed and confirmed by me. Those systems with pertinent positive or negative responses have been documented in the HPI. All other systems are other negative and/or noncontributory. PHYSICAL EXAM: General Impression: Alert and oriented x3, not in acute distress HEENT: Normocephalic atraumatic, extra-ocular movements intact, pupils equal and reactive to light bilaterally, mucous membranes moist. Cardiovascular: Heart regular rate and rhythm Chest: Able to complete full sentences, no retractions, no tachypnea Abdomen: abdomen soft, non-tender, non-distended, no organomegaly Musculoskeletal: Pulses present and equal in all extremities, no peripheral edema Motor: no focal deficits noted Neurological: CN II-XII grossly intact, no focal motor or sensory deficits noted Skin: Intact with no visualized rashes Psych: Normal affect and mood ED course: 56-year-old well-appearing female presents to the emergency department for atypical chest pain. Vital signs upon arrival are within acceptable limits. EKG is benign. Shows no signs of ischemia or infarction. Patient does have a history of blood clots and has been without her eliquis for the last 3 days however her symptoms do not suggest PE. She is not dyspneic per she has no complaints of shortness of breath. She is not tachycardic or hypoxic. She has very atypical chest pain. She has no risk factors for acute coronary syndrome. She has no history of coronary artery disease. No strong family history or medical risk factors besides 56. Labs were ordered found to be unremarkable. Troponin is negative. Coag panel is negative. Chest x-ray is nonacute. The emergency department for approximately 2 hours and 30 minutes. She was seen and evaluated at bedside at around 3:30 PM. Is well-appearing. She is in no acute distress with stable vitals. Patient be discharged. Advised follow-up with primary care doctor. [place] symptoms. She could be having the beginnings of shingles. EKG interpretation: Ventricular rate 70, sinus rhythm, RI interval 111, QS 93, QTC 399. No RI prolongation, no QTC prolongation, no ST or T-wave changes noted. Overall, this EKG is unremarkable - Related Data Home Medications Medication Instructions Recorded Confirmed Lansoprazole [Prevacid] 30 mg PO DAILY 02/21/18 12/03/21 Anastrozole [Arimidex] 1 mg PO DAILY 08/08/19 12/03/21 ALPRAZolam [Xanax] 0.25 mg PO HS PRN 12/03/21 12/03/21 Alendronate Sodium 70 mg PO LEWIS 12/03/21 12/03/21 Levothyroxine Sodium [Synthroid] 25 mcg PO DAILY 12/03/21 12/03/21 Levothyroxine Sodium [Synthroid] 137 mcg PO DAILY 12/03/21 12/03/21 Previous Rx's Medication Instructions Recorded Apixaban [Eliquis Starter Pack 5 - 10 mg PO DIRECTED 30 Days 12/03/21 (for VTE)] #1 each Allergies Allergy/AdvReac Type Severity Reaction Status Date / Time adhesive tape Allergy Rash/Hives Verified 01/29/22 13:14 bacitracin Allergy Rash/Hives Verified 01/29/22 13:14 [From Neosporin ([id number])] neomycin Allergy Rash/Hives Verified 01/29/22 13:14 [From Neosporin ([id number])] polymyxin B Allergy Rash/Hives Verified 01/29/22 13:14 [From Neosporin ([id number])] sulfamethoxazole Allergy Itching Verified 01/29/22 13:14 [From Bactrim] trimethoprim [From Bactrim] Allergy Itching Verified 01/29/22 13:14 Review of Systems ROS Statement: Those systems with pertinent positive or pertinent negative responses have been documented in the HPI. ROS Other: All systems not noted in ROS Statement are negative. Past Medical History Past Medical History: Cancer, GERD/Reflux, Thyroid Disorder Additional Past Medical History / Comment(s): melanoma - 2010 on back, left breast Ca - 2017 History of Any Multi-Drug Resistant Organisms: None Reported Past Surgical History: Appendectomy, Breast Surgery, Section, Tubal Ligation Additional Past Surgical History / Comment(s): hx melanoma removed from back in 2010. Total thyroidectomy 1995. Left breast mastectomy 2017 with reconstruction. Right breast reduction February 2019. Past Anesthesia/Blood Transfusion Reactions: Postoperative Nausea & Vomiting (PONV) Past Psychological History: No Psychological Hx Reported Smoking Status: Never smoker Past Alcohol Use History: Occasional Past Drug Use History: None Reported - Past Family History Mother Family Medical History: Cancer Additional Family Medical History / Comment(s): leukemia General Exam Limitations: no limitations Course Vital Signs 01/29/22 13:11 Temperature 98.0 F Pulse Rate 81 Respiratory 16 Rate Blood Pressure 151/92 O2 Sat by Pulse 98 Oximetry Medical Decision Making - Lab Data Result diagrams: 01/29/22 13:37 01/29/22 13:37 Lab Results 01/29/22 01/29/22 01/29/22 Range/Units 13:37 13:37 13:37 WBC 7.3 (3.8-10.6) k/uL RBC 4.97 (3.80-5.40) m/uL Hgb 13.8 (11.4-16.0) gm/dL Hct 43.9 (34.0-46.0) % MCV 88.2 (80.0-100.0) fL MCH 27.7 (25.0-35.0) pg MCHC 31.4 (31.0-37.0) g/dL RDW 13.5 (11.5-15.5) % Plt Count 233 (150-450) k/uL MPV 7.7 Neutrophils % 69 % Lymphocytes % 21 % Monocytes % 5 % Eosinophils % 4 % Basophils % 1 % Neutrophils # 5.0 (1.3-7.7) k/uL Lymphocytes # 1.5 (1.0-4.8) k/uL Monocytes # 0.3 (0-1.0) k/uL Eosinophils # 0.3 (0-0.7) k/uL Basophils # 0.1 (0-0.2) k/uL PT 10.0 (9.0-12.0) sec INR 0.9 (<1.2) APTT 23.4 (22.0-30.0) sec Sodium 138 (137-145) mmol/L Potassium 4.2 (3.5-5.1) mmol/L Chloride 106 (98-107) mmol/L Carbon Dioxide 24 (22-30) mmol/L Anion Gap 8 mmol/L BUN 13 (7-17) mg/dL Creatinine 0.66 (0.52-1.04) mg/dL Est GFR (CKD-EPI)AfAm >90 (>60 ml/min/1.73 sqM) Est GFR (CKD-EPI)NonAf >90 (>60 ml/min/1.73 sqM) Glucose 107 H (74-99) mg/dL Calcium 9.4 (8.4-10.2) mg/dL Magnesium 1.7 (1.6-2.3) mg/dL Total Bilirubin 0.7 (0.2-1.3) mg/dL AST 41 H (14-36) U/L ALT 46 H (4-34) U/L Alkaline Phosphatase 103 (38-126) U/L Troponin I (0.000-0.034) ng/mL Total Protein 7.6 (6.3-8.2) g/dL Albumin 4.2 (3.5-5.0) g/dL 01/29/22 Range/Units 13:37 WBC (3.8-10.6) k/uL RBC (3.80-5.40) m/uL Hgb (11.4-16.0) gm/dL Hct (34.0-46.0) % MCV (80.0-100.0) fL MCH (25.0-35.0) pg MCHC (31.0-37.0) g/dL RDW (11.5-15.5) % Plt Count (150-450) k/uL MPV Neutrophils % % Lymphocytes % % Monocytes % % Eosinophils % % Basophils % % Neutrophils # (1.3-7.7) k/uL Lymphocytes # (1.0-4.8) k/uL Monocytes # (0-1.0) k/uL Eosinophils # (0-0.7) k/uL Basophils # (0-0.2) k/uL PT (9.0-12.0) sec INR (<1.2) APTT (22.0-30.0) sec Sodium (137-145) mmol/L Potassium (3.5-5.1) mmol/L Chloride (98-107) mmol/L Carbon Dioxide (22-30) mmol/L Anion Gap mmol/L BUN (7-17) mg/dL Creatinine (0.52-1.04) mg/dL Est GFR (CKD-EPI)AfAm (>60 ml/min/1.73 sqM) Est GFR (CKD-EPI)NonAf (>60 ml/min/1.73 sqM) Glucose (74-99) mg/dL Calcium (8.4-10.2) mg/dL Magnesium (1.6-2.3) mg/dL Total Bilirubin (0.2-1.3) mg/dL AST (14-36) U/L ALT (4-34) U/L Alkaline Phosphatase (38-126) U/L Troponin I <0.012 (0.000-0.034) ng/mL Total Protein (6.3-8.2) g/dL Albumin (3.5-5.0) g/dL Disposition Clinical Impression: Chest pain Disposition: HOME SELF-CARE Condition: Good Instructions (If sedation given, give patient instructions): Chest Pain (ED) Is patient prescribed a controlled substance at d/c from ED?: No Referrals: Ana Santos MD [Primary Care Provider] - 1-2 days
== END 2022-01-29 15:57 | disposition home or self-care (01) ==
LOC: EC 13:09
DX: R07.89 Other chest pain (principal); K21.9 Gastro-esophageal reflux disease without esophagitis; E07.9 Disorder of thyroid, unspecified; Z85.3 Personal history of malignant neoplasm of breast; Z79.01 Long term (current) use of anticoagulants; Z88.1 Allergy status to other antibiotic agents; Z88.2 Allergy status to sulfonamides; Z90.49 Acquired absence of other specified parts of digestive tract; Z98.51 Tubal ligation status; Z90.12 Acquired absence of left breast and nipple
CPT/HCPCS: 36415; 71046; 80053; 83735; 84484; 85025; 85610; 85730; 93005; 99285

== ENCOUNTER 2022-10-17 12:33 | Inpatient (IN) | payer BC ==
--- NOTE | 2022-10-17 12:39 | ED ---
General Adult HPI - General Stated complaint: Stroke Time Seen by Provider: 10/17/22 12:36 - History of Present Illness Initial comments: Dictation was produced using [employer] dictation software. please excuse any grammatical, word or spelling errors. Chief Complaint: 57-year-old female presents with strokelike symptoms started 30 minutes prior to arrival History of Present Illness: Patient is a 57-year-old female she presents to [facility] for strokelike symptoms beginning around 12 PM today. Patient is brought in by EMS. According to EMS provides history of present illness her symptoms were witnessed by who called EMS. Patient states she complains of numbness to her right arm and right face. Patient has no history of stroke. She has history of DVT. She is not currently on anticoagulation medications. She was on blood thinners for 3 months only. The ROS documented in this emergency department record has been reviewed and confirmed by me. Those systems with pertinent positive or negative responses have been documented in the HPI. All other systems are other negative and/or noncontributory. PHYSICAL EXAM: General Impression: Alert and oriented x3, not in acute distress HEENT: Normocephalic atraumatic, extra-ocular movements intact, pupils equal and reactive to light bilaterally, mucous membranes moist. Cardiovascular: Heart regular rate and rhythm Chest: Able to complete full sentences, no retractions, no tachypnea Abdomen: abdomen soft, non-tender, non-distended, no organomegaly Musculoskeletal: Pulses present and equal in all extremities, no peripheral edema Motor: no focal deficits noted Neurological: CN II-XII grossly intact, no focal motor or sensory deficits noted, NIH scale of 3 Skin: Intact with no visualized rashes Psych: Normal affect and mood ED course: 57-year-old female presents with strokelike symptoms starting 30 minutes prior to arrival. EMS states that her symptoms were witnessed by and sure last known normal was around 11:45 AM to 12 PM. Code alteplase was paged prior to patient's arrival. Patient given an nih stroke scale 3. Nursing notes and chart review was performed This is discussed with Dr. Rubio at 12:58 PM. He does not feel that patient meets criteria for alteplase administration due to low NIH score. Risks ou tweigh the benefits. My EKG interpretation: Ventricular rate 63, sinus rhythm,. Interval 159, QRS 80, QTC 419. No [place] prolongation, no QTC prolongation, no ST or T-wave changes noted. Overall, this EKG is unremarkable Evaluation obtained. CBC, coag panel, metabolic panel is unremarkable. Abdomi nal labs negative. CT brain and CT angiography of the head and neck are without any acute processes. Patient reevaluated at bedside at 2:30 PM found with stable medical condition. Symptoms have been improving to the point where she feels very minimal paresthesias to the right lower face and right Patient given aspirin and admitted to the hospital consultation to neurology. Case discussed with Dr. Hernandez. Was pt. sent in by a medical professional or institution (, PA, DROP FORGE OPERATOR, urgent care, hospital, or correction...) When possible be specific @ -No Did you speak to anyone other than the patient for history (EMS, parent, family, police, friend...)? What history was obtained from this source @ -EMS Did you review nursing and triage notes (agree or disagree)? Why? @ -I reviewed and agree with nursing and triage notes Were old charts reviewed (outside hosp., previous admission, EMS record, old EKG, old radiological studies, urgent care reports/EKG's, correction records)? Report findings @ -No old charts were reviewed Differential Diagnosis (chest pain, altered mental status, abdominal pain women, abdominal pain men, vaginal bleeding, weakness, fever, dyspnea, syncope, headache, dizziness, GI bleed, back pain, seizure, CVA, palpatations, mental health)? @ -Differential Weakness: Hypoglycemia, shock, sepsis, hyponatremia, anemia, infection, FL, ETOH, adverse medicine reaction, overdose, stroke, this is not meant to be an all-inclusive list. EKG interpreted by me (3pts min.). @ -As above X-rays interpreted by me (1pt min.). @ -As above CT interpreted by me (1pt min.). @ -As above U/S interpreted by me (1pt. min.). @ -None done What testing was considered but not performed or refused? (CT, X-rays, U/S, la bs)? Why? @ -None What meds were considered but not given or refused? Why? @ -None Did you discuss the management of the patient with other professionals (professionals i.e. , PA, DROP FORGE OPERATOR, lab, RT, psych nurse, social media analyst, fiberglass container winding operator, teacher, fire control officer, telephonic nurse case manager)? Give summary @ -See above Was smoking cessation discussed for >3mins.? @ -No Was critical care preformed (if so, how long)? @ -Yes, 33 minutes Were there social determinants of health that impacted care today? How? (Homelessness, low income, unemployed, alcoholism, drug addiction, transportation, low edu. Level, literacy, decrease access to med. care, [facility], rehab)? @ -No Was there de-escalation of care discussed even if they declined (Discuss DNR or withdrawal of care, Hospice)? DNR status @ -No What co-morbidities impacted this encounter? (DM, HTN, Smoking, COPD, CAD, Cancer, CVA, ARF, Chemo, Hep., AIDS, mental health diagnosis, sleep apnea, morbid obesity)? @ -None Was patient admitted / discharged? Hospital course, mention meds given and route, prescriptions, significant lab abnormalities, going to OR and other pertinent info. @ -See above Undiagnosed new problem with uncertain prognosis? @ -No Drug Therapy requiring intensive monitoring for toxicity (Heparin, Nitro, Insulin, Cardizem)? @ -No Were any procedures done? @ -No Diagnosis/symptom? @ -Cerebrovascular accident Acute, or Chronic, or Acute on Chronic? @ -Acute Uncomplicated (without systemic symptoms) or Complicated (systemic symptoms)? @ -default Side effects of treatment? @ -No Exacerbation, Progression, or Severe Exacerbation? @ -No Poses a threat to life or bodily function? How? (Chest pain, USA, FL, pneumonia, PE, COPD, DKA, ARF, appy, cholecystitis, CVA, Diverticulitis, Homicidal, Suicidal, threat to staff... and all critical care pts) @ -Yes - Related Data Home Medications Medication Instructions Recorded Confirmed Lansoprazole [Prevacid] 30 mg PO DAILY 02/21/18 10/17/22 Anastrozole [Arimidex] 1 mg PO DAILY 08/08/19 10/17/22 ALPRAZolam [Xanax] 0.25 mg PO BID PRN 12/03/21 10/17/22 Alendronate Sodium 70 mg PO LEWIS 12/03/21 10/17/22 Levothyroxine Sodium [Synthroid] 25 mcg PO DAILY 12/03/21 10/17/22 Levothyroxine Sodium [Synthroid] 137 mcg PO DAILY 12/03/21 10/17/22 Calcium Carbonate [Calcium] 600 mg PO DAILY 10/17/22 10/17/22 Cholecalciferol [Vitamin D3 (25 25 mcg PO DAILY 10/17/22 10/17/22 Mcg = 1000 Iu)] Clobetasol 0.05% Solution 1 applic TOPICAL BID PRN 10/17/22 10/17/22 Allergies Allergy/AdvReac Type Severity Reaction Status Date / Time adhesive tape Allergy Rash/Hives Verified 10/17/22 12:42 bacitracin Allergy Rash/Hives Verified 10/17/22 12:42 [From Neosporin ([id number])] neomycin Allergy Rash/Hives Verified 10/17/22 12:42 [From Neosporin ([id number])] polymyxin B Allergy Rash/Hives Verified 10/17/22 12:42 [From Neosporin ([id number])] sulfamethoxazole Allergy Itching Verified 10/17/22 12:42 [From Bactrim] trimethoprim [From Bactrim] Allergy Itching Verified 10/17/22 12:42 Review of Systems ROS Statement: Those systems with pertinent positive or pertinent negative responses have been documented in the HPI. ROS Other: All systems not noted in ROS Statement are negative. Past Medical History Past Medical History: Cancer, GERD/Reflux, Thyroid Disorder Additional Past Medical History / Comment(s): melanoma - 2010 on back, left breast Ca - 2017 History of Any Multi-Drug Resistant Organisms: None Reported Past Surgical History: Appendectomy, Breast Surgery, Section, Tubal Lig ation Additional Past Surgical History / Comment(s): hx melanoma removed from back in 2010. Total thyroidectomy 1995. Left breast mastectomy 2017 with reconstruction. Right breast reduction February 2019. Past Anesthesia/Blood Transfusion Reactions: Postoperative Nausea & Vomiting (PONV) Past Psychological History: No Psychological Hx Reported Smoking Status: Never smoker Past Alcohol Use History: Occasional Past Drug Use History: None Reported - Past Family History Mother Family Medical History: Cancer Additional Family Medical History / Comment(s): leukemia Course Vital Signs 10/17/22 10/17/22 10/17/22 12:34 12:43 12:50 Temperature 97.8 F Pulse Rate 70 75 61 Respiratory 18 18 18 Rate Blood Pressure 165/83 160/79 O2 Sat by Pulse 100 100 Oximetry 10/17/22 10/17/22 10/17/22 13:00 13:20 13:35 Temperature Pulse Rate 69 72 68 Respiratory 18 18 18 Rate Blood Pressure 151/81 142/79 145/72 O2 Sat by Pulse 98 100 99 Oximetry 10/17/22 10/17/22 13:50 14:05 Temperature Pulse Rate 62 60 Respiratory 18 18 Rate Blood Pressure 139/70 141/72 O2 Sat by Pulse 99 100 Oximetry Medical Decision Making - Lab Data Result diagrams: 10/17/22 12:48 10/17/22 12:48 Lab Results 10/17/22 10/17/22 10/17/22 Range/Units 12:43 12:48 12:48 WBC 8.0 (3.8-10.6) k/uL RBC 5.44 H (3.80-5.40) m/uL Hgb 16.0 (11.4-16.0) gm/dL Hct 46.3 H (34.0-46.0) % MCV 85.0 (80.0-100.0) fL MCH 29.4 (25.0-35.0) pg MCHC 34.6 (31.0-37.0) g/dL RDW 13.1 (11.5-15.5) % Plt Count 244 (150-450) k/uL MPV 8.5 Neutrophils % 69 % Lymphocytes % 23 % Monocytes % 4 % Eosinophils % 2 % Basophils % 1 % Neutrophils # 5.5 (1.3-7.7) k/uL Lymphocytes # 1.8 (1.0-4.8) k/uL Monocytes # 0.3 (0-1.0) k/uL Eosinophils # 0.2 (0-0.7) k/uL Basophils # 0.0 (0-0.2) k/uL PT 10.5 (9.0-12.0) sec INR 1.0 (<1.2) APTT 23.9 (22.0-30.0) sec Sodium (137-145) mmol/L Potassium (3.5-5.1) mmol/L Chloride (98-107) mmol/L Carbon Dioxide (22-30) mmol/L Anion Gap mmol/L BUN (7-17) mg/dL Creatinine (0.52-1.04) mg/dL Est GFR (CKD-EPI)AfAm (>60 ml/min/1.73 sqM) Est GFR (CKD-EPI)NonAf (>60 ml/min/1.73 sqM) Glucose (74-99) mg/dL POC Glucose (mg/dL) 142 H (70-110) mg/dL POC Glu [employer] Abiel Loomis Calcium (8.4-10.2) mg/dL Total Bilirubin (0.2-1.3) mg/dL AST (14-36) U/L ALT (4-34) U/L Alkaline Phosphatase (38-126) U/L Troponin I (0.000-0.034) ng/mL Total Protein (6.3-8.2) g/dL Albumin (3.5-5.0) g/dL 10/17/22 10/17/22 Range/Units 12:48 12:48 WBC (3.8-10.6) k/uL RBC (3.80-5.40) m/uL Hgb (11.4-16.0) gm/dL Hct (34.0-46.0) % MCV (80.0-100.0) fL MCH (25.0-35.0) pg MCHC (31.0-37.0) g/dL RDW (11.5-15.5) % Plt Count (150-450) k/uL MPV Neutrophils % % Lymphocytes % % Monocytes % % Eosinophils % % Basophils % % Neutrophils # (1.3-7.7) k/uL Lymphocytes # (1.0-4.8) k/uL Monocytes # (0-1.0) k/uL Eosinophils # (0-0.7) k/uL Basophils # (0-0.2) k/uL PT (9.0-12.0) sec INR (<1.2) APTT (22.0-30.0) sec Sodium 137 (137-145) mmol/L Potassium 4.0 (3.5-5.1) mmol/L Chloride 103 (98-107) mmol/L Carbon Dioxide 24 (22-30) mmol/L Anion Gap 10 mmol/L BUN 15 (7-17) mg/dL Creatinine 0.64 (0.52-1.04) mg/dL Est GFR (CKD-EPI)AfAm >90 (>60 ml/min/1.73 sqM) Est GFR (CKD-EPI)NonAf >90 (>60 ml/min/1.73 sqM) Glucose 120 H (74-99) mg/dL POC Glucose (mg/dL) (70-110) mg/dL POC Glu [employer] ID Calcium 10.0 (8.4-10.2) mg/dL Total Bilirubin 0.7 (0.2-1.3) mg/dL AST 43 H (14-36) U/L ALT 64 H (4-34) U/L Alkaline Phosphatase 98 (38-126) U/L Troponin I <0.012 (0.000-0.034) ng/mL Total Protein 8.4 H (6.3-8.2) g/dL Albumin 5.0 (3.5-5.0) g/dL Critical Care Time Critical Care Time: Yes Total Critical Care Time: 33 Disposition Clinical Impression: Cerebrovascular accident (CVA) Disposition: ADMITTED IP TO THIS [facility] Condition: Serious Referrals: None,Stated [REFERRING] - 1-2 days Decision Time: 14:46
[2022-10-17 12:44] LABS: Glucose,Whole Blood 142 mg/dL (70-110)
[2022-10-17] MEDS ORDERED: Alteplase PER PHARMACY Stroke 1 EACH MISC MISCELLANE PRN (12:47)
[2022-10-17] MEDS ORDERED: ALTEPLASE 81 MG in EMPTY BAG 1 BAG IV STA (12:49)
[2022-10-17] MEDS ORDERED: ALTEPLASE BOLUS FOR STROKE 9 MG in EMPTY SYRINGE 1 SYR IV STA (12:49)
[2022-10-17 13:07] LABS: Basophils % (A) 1 %; Eosinophils # (A) 0.2 k/uL (0-0.7); Eosinophils % (A) 2 %; HCT 46.3 % (34.0-46.0); Lymphocytes # (A) 1.8 k/uL (1.0-4.8); Lymphocytes % (A) 23 %; MCH 29.4 pg (25.0-35.0); MCHC 34.6 g/dL (31.0-37.0); Mean Platelet Volume 8.5; Monocytes # (A) 0.3 k/uL (0-1.0); Monocytes % (A) 4 %; Neutrophils # (A) 5.5 k/uL (1.3-7.7); Neutrophils % (A) 69 %; Partial Thromboplastin Time 23.9 sec (22.0-30.0); Platelet Count 244 k/uL (150-450); Prothrombin Time 10.5 sec (9.0-12.0); RBC 5.44 m/uL (3.80-5.40); RDW 13.1 % (11.5-15.5)
[2022-10-17 13:09] LABS: ALT 64 U/L (4-34); AST 43 U/L (14-36); African American GFR (CKD) >90 (>60 ml/min/1.73 sqM); Alkaline Phosphatase 98 U/L (38-126); Anion Gap 10 mmol/L; Blood Urea Nitrogen 15 mg/dL (7-17); Carbon Dioxide 24 mmol/L (22-30); Chloride 103 mmol/L (98-107); Glucose 120 mg/dL (74-99); Non-African American GFR(CKD) >90 (>60 ml/min/1.73 sqM); Sodium 137 mmol/L (137-145); Total Bilirubin 0.7 mg/dL (0.2-1.3); Total Protein 8.4 g/dL (6.3-8.2)
[2022-10-17] MEDS ORDERED: ONDANSETRON 4 MG/2 ML VIAL IVP STA ×2 (13:09→13:13)
[2022-10-17] MEDS ORDERED: ASPIRIN 81 MG PO STA (13:22)
--- NOTE | 2022-10-17 13:27 | CT ---
EXAMINATION TYPE: CT brain wo con for TPA CT DLP: 1135.3 mGycm, Automated exposure control for dose reduction was used. DATE OF EXAM: 10/17/2022 12:58 PM COMPARISON: Angiogram head 11/06/2020. CLINICAL INDICATION:Female, 57 years old with history of Neuro deficit, acute, stroke suspected, Righ t sided weakness TECHNIQUE: Brain: Axial CT images of the brain were obtained with coronal and sagittal reformats created and rev iewed. Contrast used: None. Oral contrast used: None. FINDINGS: Brain: Extra-axial spaces: No abnormal extra-axial fluid collections. Ventricular system: Within normal limits Cerebral parenchyma: No acute intraparenchymal hemorrhage or mass effect. The lord-white junction is well differentiated. Left middle cranial fossa CSF attenuating probable arachnoid cyst. Cerebellum: Unremarkable. Mass effect: No evidence of midline shift. Intracranial vasculature: unremarkable Soft tissues: Normal. Calvarium/osseous structures: No depressed skull fracture. Paranasal sinuses and mastoid air cells: Mild scattered paranasal sinus disease. Visualized orbits: Orbital contents are intact. IMPRESSION: 1. No acute intracranial process. 2. Left middle cranial fossa arachnoid cyst suggested.
--- NOTE | 2022-10-17 13:28 | CT ---
EXAMINATION TYPE: CT angio head neck CT DLP: 711.1 mGycm, Automated exposure control for dose reduction was used. DATE OF EXAM: 10/17/2022 1:13 PM COMPARISON: Same day CT head. CLINICAL INDICATION:Female, 57 years old with history of Neuro deficit, acute, stroke suspected, Righ t sided weakness TECHNIQUE: Axially acquired helical CT angiogram of the head and neck was obtained with contrast. Axi al images are supplemented with 3D reconstructions which [facility] NASCET criteria used. Contrast used:65 mL of Isovue 370 with IV Contrast, Oral contrast used: None. FINDINGS: CTA HEAD: No evidence of acute intracranial hemorrhage, mass effect, or midline shift. The ventricles, sulci, a nd cisterns are unremarkable. The visualized portions of the internal carotid arteries, middle cerebral arteries, anterior cerebral arteries, and posterior cerebral arteries are patent. The basilar and vertebral arteries are patent. CTA NECK: Right Carotid System: The common carotid artery and external carotid artery are patent. The carotid bifurcation demonstrate s no evidence of hemodynamically significant stenosis. The remaining portions of the internal carotid artery demonstrate normal size without significant narrowing. Left Carotid System: The common carotid artery and external carotid artery are patent. The carotid bifurcation demonstrate s no evidence of hemodynamically significant stenosis. The remaining portions of the internal carotid artery demonstrate normal size without significant narrowing. Vertebral arteries are patent without evidence hemodynamically significant stenosis. There is a three-vessel aortic arch. The origins of the great vessels are patent. No evidence of hemo dynamically significant stenosis. IMPRESSION: 1. No evidence of dissection of the cervical internal carotid arteries or vertebral arteries or any e vidence of significant stenosis at the carotid bifurcations. 2. No evidence of intracranial high-grade stenosis or intracranial aneurysm.
[2022-10-17] MEDS ORDERED: SODIUM CHLORIDE 0.9% 50 ML MINI-BAG IV ONE ×2 (13:47→14:00)
[2022-10-17] MEDS ORDERED: METOCLOPRAMIDE 5 MG/ML 2 ML VIAL IVP STA (13:53)
[2022-10-17] MEDS ORDERED: NALOXONE 0.4 MG/ML 1 ML VIAL IV PRN (14:38)
[2022-10-17] MEDS ORDERED: SODIUM CHLORIDE 0.9% 1,000 ML IV SCH (14:45)
--- NOTE | 2022-10-17 15:15 | XR ---
EXAMINATION TYPE: XR chest 2V DATE OF EXAM: 10/17/2022 COMPARISON: 01/29/2022 HISTORY: Altered mental status TECHNIQUE: 2 views FINDINGS: Heart and mediastinum are normal. Lungs are clear. Diaphragm is normal. Bony thorax is inta ct. There are chest leads. IMPRESSION: Normal chest. No adverse change.
[2022-10-17] MEDS ORDERED: CLOBETASOL 0.05% TOPICAL PRN (15:27)
[2022-10-17] MEDS ORDERED: ALPRAZolam 0.25 MG TAB PO PRN (15:27)
[2022-10-17] MEDS ORDERED: PROCHLORPERAZINE INJ 10 MG/2 ML VIAL IVP PRN (17:01)
[2022-10-17] MEDS ORDERED: HYDROcodone/APAP 5-325MG 1 EACH TAB PO PRN (17:01)
--- NOTE | 2022-10-17 17:08 | P.HPIM ---
History of Present Illness H&P Date: 10/17/22 History of Presenting Illness: Patient is a very pleasant 57-year-old female with a past medical history of left-sided breast cancer status post mastectomy and reconstruction 2017, thyroid nodule status post complete thyroidectomy 1995, melanoma status post removal of melanoma on back in 2010, and GERD. She presented to the emergency department via EMS as a code stroke. Per documentation in chart EMS stated patient developed sudden onset right-sided facial droop and upper extremity numbness/weakness reportedly witnessed by her beginning approximately at 11:45 AM and EMS was called immediately. Upon arrival to the emergency department patient was seen and fully evaluated by ED physician and received an NIH score of 3. Blood glucose was 142. Patient underwent stat CT brain which was negative for acute intercranial process with reports of a left middle cran ial fossa arachnoid cyst. CTA head negative for acute intercranial process. CTA neck negative showing no evidence of dissection or significant stenosis. CBC, coags, and CMP were completed. Labs reviewed with CBC showing no significant abnormalities, coags unremarkable, BMP unremarkable, and liver profile revealing slightly elevated AST of 43 and ALT of 64. Troponin was negative at less than 0.012 and EKG was completed showing normal sinus rhythm at 63 bpm with no noted T-wave or ST abnormalities showing no signs of acute ischemia. Chest x-ray negative for acute cardiopulmonary process. ED physician discussed patient and her presenting signs and symptoms, NIH score, and imaging results with interventional neurologist Dr. Rubio and per documentation in chart, interventional neurologist did not feel that patient meets criteria for alteplase administration at this time secondary to low NIH scores as risks would outweigh the benefits. Patient has been accepted for admission under our services with consultation to neurology at this time. Patient seen and fully evaluated at bedside. Patient's , son, and brother were present during assessment and interview as okayed by patient. At time of assessment patient continues to have reports of a tingling sensation to right side of her face and right hand/fingers. She denies ever experiencing any numbness, tingling, or weakness in her right lower extremity. Patient does report initially slow to respond to speech but denies difficulties or slurring of speech and speech is currently clear. Patient at bedside reports patient initially had right-sided facial droop and was unable to smile normally but has since improved. Right-sided facial droop appears to have improved but tingling to right side of face remains. Patient is able to lift her eyebrows, puff out her cheeks, stick out her tongue, and has appropriate EOMs. Patient was noted to have past pointing when performing finger to nose examination, no tremors were seen. Negative arm drop. 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 Normal [id number] and 5 out of 5 strong and equal strength to bilateral lower extremities. Patient reports in addition to the symptoms she is also felt as though she has a "brain fog" since last night and has had significant nausea with recurrent episodes of vomiting. Patient denies having any headache, dizziness/lightheadedness, changes in vision or hearing, chest pain, palpitations, shortness of breath, or any other complaints at this time. Review of systems: Pertinent positives and negatives as discussed in HPI, a complete review of systems was performed and all other systems are negative. Physical exam: Vital signs reviewed and stable. General: Nontoxic, no distress and appears stated age. Derm: Skin warm and dry, normal coloration for ethnicity. Head: Atraumatic, normocephalic and symmetric. Eyes: EOMs intact, no lid lag, and anicteric sclera Mouth: no lip lesions, mucus membranes moist Cardiovascular: regular rate and rhythm with normal S1S2, no murmur, positive posterior tibial pulses bilaterally, and cap refill < 2 seconds. Lungs: Respirations even, regular, and unlabored on room air. Lungs CTA bilaterally, no rhonchi, no rales, no wheezing, and no accessory muscle usage. Abdominal: soft, nontender to palpation, no guarding, no appreciable organomegaly Ext: ROM intact. No gross muscle atrophy, no edema, no contractures. Movement and sensation intact. Patient does have noted past pointing when attempting to perform finger to nose test when using right hand. Right hand 4 out of 5 strength with corporate communications specialist. Right upper extremity 3 out of 5 with extension and 5 out of 5 with flexion. Left upper extremity 5 out of 5 in all whitmore of strength and movement. Neuro: Speech clear, face symmetrical and CN II-XII grossly intact. Patient does report tingling sensation to right side of face, right hand and right fingers. Psych: Alert and oriented to person, place, time, and situation. Appropriate and pleasant affect. Assessment and Plan of Care: Right-sided facial and right upper extremity parathesias and weakness, conc erning for CVA -CT head, CTA head, and CTA neck negative for acute abnormalities. -NIH stroke scale, initial NIH score 3 -Neuro checks -Neurology consulted -Aspirin and atorvastatin -Lipid profile and hemoglobin A1c with a.m. labs -Echocardiogram -MRI -PT/OT consulted Hypothyroidism status post complete thyroidectomy -Continue with daily medication regimen consisting of levothyroxine History of breast cancer status post mastectomy with lymph node removal -Nursing communication placed for no lab draws or blood pressures in left arm. -Continue alendronate The patient is admitted with an anticipated greater than 2 midnight stay for evaluation of . Surrogate decision-maker: Self CODE STATUS: Full code DVT prophylaxis: enoxaparin 40mg Discussed with: nursing, ED Anticipated discharge date: 1-[address]: home A total of minutes was spent on the care of this complex patient more than 50% of the time was spent in counseling and care coordination. I reviewed the documentation as provided by the BALAJI above, who is the original author of this note. I agree with the documented assessment and plan, with the following changes: none Past Medical History Past Medical History: Cancer, GERD/Reflux, Thyroid Disorder Additional Past Medical History / Comment(s): melanoma - 2010 on back, left breast Ca - 2017 History of Any Multi-Drug Resistant Organisms: None Reported Past Surgical History: Appendectomy, Breast Surgery, Section, Tubal Ligation Additional Past Surgical History / Comment(s): hx melanoma removed from back in 2010. Total thyroidectomy 1995. Left breast mastectomy 2017 with reconstruction. Right breast reduction February 2019. Past Anesthesia/Blood Transfusion Reactions: Postoperative Nausea & Vomiting (PONV) Past Psychological History: No Psychological Hx Reported Smoking Status: Never smoker Past Alcohol Use History: Occasional Past Drug Use History: None Reported - Past Family History Mother Family Medical History: Cancer Additional Family Medical History / Comment(s): leukemia Medications and Allergies Home Medications Medication Instructions Recorded Confirmed Type Lansoprazole [Prevacid] 30 mg PO DAILY 02/21/18 10/17/22 History Anastrozole [Arimidex] 1 mg PO DAILY 08/08/19 10/17/22 History ALPRAZolam [Xanax] 0.25 mg PO BID PRN 12/03/21 10/17/22 History Alendronate Sodium 70 mg PO LEWIS 12/03/21 10/17/22 History Levothyroxine Sodium [Synthroid] 25 mcg PO DAILY 12/03/21 10/17/22 History Levothyroxine Sodium [Synthroid] 137 mcg PO DAILY 12/03/21 10/17/22 History Calcium Carbonate [Calcium] 600 mg PO DAILY 10/17/22 10/17/22 History Cholecalciferol [Vitamin D3 (25 25 mcg PO DAILY 10/17/22 10/17/22 History Mcg = 1000 Iu)] Clobetasol 0.05% Solution 1 applic TOPICAL BID PRN 10/17/22 10/17/22 History Allergies Allergy/AdvReac Type Severity Reaction Status Date / Time adhesive tape Allergy Rash/Hives Verified 10/17/22 12:42 bacitracin Allergy Rash/Hives Verified 10/17/22 12:42 [From Neosporin ([id number])] neomycin Allergy Rash/Hives Verified 10/17/22 12:42 [From Neosporin ([id number])] polymyxin B Allergy Rash/Hives Verified 10/17/22 12:42 [From Neosporin ([id number])] sulfamethoxazole Allergy Itching Verified 10/17/22 12:42 [From Bactrim] trimethoprim [From Bactrim] Allergy Itching Verified 10/17/22 12:42 Physical Exam Osteopathic Statement: *. No significant issues noted on an osteopathic structural exam other than those noted in the History and Physical/Consult. Vitals: Vital Signs Temp Pulse Resp BP Pulse Ox 10/17/22 15:25 98.1 F 58 L 18 134/74 99 10/17/22 14:50 56 L 18 128/64 97 10/17/22 14:35 58 L 18 130/78 98 10/17/22 14:20 58 L 18 134/71 98 10/17/22 14:05 60 18 141/72 100 10/17/22 13:50 62 18 139/70 99 10/17/22 13:35 68 18 145/72 99 10/17/22 13:20 72 18 142/79 100 10/17/22 13:00 69 18 151/81 98 10/17/22 12:50 61 18 160/79 10/17/22 12:43 75 18 165/83 100 10/17/22 12:34 97.8 F 70 18 100 Intake and Output 10/17/22 10/17/22 10/17/22 06:59 14:59 22:59 Other: Weight 122.47 kg Results CBC & Chem 7: 10/17/22 12:48 10/17/22 12:48 Labs: Abnormal Lab Results - Last 24 Hours (Table) 10/17/22 10/17/22 10/17/22 Range/Units 12:43 12:48 12:48 RBC 5.44 H (3.80-5.40) m/uL Hct 46.3 H (34.0-46.0) % Glucose 120 H (74-99) mg/dL POC Glucose (mg/dL) 142 H (70-110) mg/dL AST 43 H (14-36) U/L ALT 64 H (4-34) U/L Total Protein 8.4 H (6.3-8.2) g/dL
[2022-10-17] MEDS: ATORVASTATIN 40 MG TAB PO SCH (20:26)
--- NOTE | 2022-10-17 23:30 | P.CNNES ---
History of Present Illness Consult date: 10/17/22 Requesting physician: Gian Beltran Reason for Consult: Code stroke History of Present Illness: Patient is a 57-year-old right-handed female, otherwise healthy, states that yesterday at around 1 PM, she felt as if she was "out of sorts". She was not feeling well. Her head felt like a fog. At around 8:20 PM, she threw up. She went to bed at 10:15 PM and woke up at 8 AM this morning and felt fine. She was sitting, having her coffee, when she felt the brain fog again. She started not feeling well. At around 11-11:15 AM, she felt numbness of the right side of the face pointing to the right mandibular region, and right distal upper extremity from hands up to the upper forearm. She denied any slurred speech although sometimes she was having difficulty saying words. She got concerned, therefore came to the ER. Patient threw up in the ER as well. Patient states that the ER she was noted to have slight droopiness on one side. Patient says that she did have a headache headache yesterday, took Motrin and went away. Vital signs on arrival blood pressure 165/83, pulse rate 70, temperature 97.8. CT head revealed no acute intracranial process. Left middle cranial fossa and arachnoid cyst. EKG shows sinus rhythm, no QRS voltage and precordial leads. Chest x-ray was normal. Stroke code was activated in the ED for NIH stroke scale of 3. ED staff discussed case with Dr. Hauser. Patient was considered not a candidate for TPA. Aspirin was given. Patient has never smoked. Patient drinks couple times a week. Denies any use of marijuana. Patient denies hypertension or diabetes. Patient has history of stage I breast cancer in 2018 for which she underwent mastectomy. Patient also has history of knee surgery in September 2021. 3 months later, after a travel, patient developed DVT in December 2021. She stayed on Eliquis for 3 months, which was stopped in March 2022. At present patient feels slight numbness in the right hand in ulnar nerve distribution. Review of Systems Constitutional: Denies chills, Denies fever Eyes: denies blurred vision, denies pain Ears: deny: decreased hearing, earache Ears, nose, mouth and throat: Denies headache, Denies sore throat Cardiovascular: Denies chest pain, Denies shortness of breath Respiratory: Denies cough Gastrointestinal: Reports nausea, Denies abdominal pain, Denies diarrhea, Denies vomiting Genitourinary: Denies dysuria, Denies hematuria Musculoskeletal: Denies myalgias, Denies neck pain Integumentary: Denies pruritus, Denies rash Neurological: Reports as per HPI Psychiatric: Denies anxiety, Denies depression Endocrine: Denies fatigue, Denies weight change Hematologic/Lymphatic: Denies easy bruising Past Medical History Past Medical History: Cancer, GERD/Reflux, Thyroid Disorder Additional Past Medical History / Comment(s): melanoma - 2010 on back, left breast Ca - 2017 History of Any Multi-Drug Resistant Organisms: None Reported Past Surgical History: Appendectomy, Breast Surgery, Section, Tubal Ligation Additional Past Surgical History / Comment(s): hx melanoma removed from back in 2010. Total thyroidectomy 1995. Left breast mastectomy 2017 with reconstruction. Right breast reduction February 2019. Past Anesthesia/Blood Transfusion Reactions: Postoperative Nausea & Vomiting (PONV) Smoking Status: Never smoker - Past Family History Mother Family Medical History: Cancer Additional Family Medical History / Comment(s): leukemia Medications and Allergies Home Medications Medication Instructions Recorded Confirmed Type Lansoprazole [Prevacid] 30 mg PO DAILY 02/21/18 10/17/22 History Anastrozole [Arimidex] 1 mg PO DAILY 08/08/19 10/17/22 History ALPRAZolam [Xanax] 0.25 mg PO BID PRN 12/03/21 10/17/22 History Alendronate Sodium 70 mg PO LEWIS 12/03/21 10/17/22 History Levothyroxine Sodium [Synthroid] 25 mcg PO DAILY 12/03/21 10/17/22 History Levothyroxine Sodium [Synthroid] 137 mcg PO DAILY 12/03/21 10/17/22 History Calcium Carbonate [Calcium] 600 mg PO DAILY 10/17/22 10/17/22 History Cholecalciferol [Vitamin D3 (25 25 mcg PO DAILY 10/17/22 10/17/22 History Mcg = 1000 Iu)] Clobetasol 0.05% Solution 1 applic TOPICAL BID PRN 10/17/22 10/17/22 History Allergies Allergy/AdvReac Type Severity Reaction Status Date / Time adhesive tape Allergy Rash/Hives Verified 10/17/22 12:42 bacitracin Allergy Rash/Hives Verified 10/17/22 12:42 [From Neosporin ([id number])] neomycin Allergy Rash/Hives Verified 10/17/22 12:42 [From Neosporin ([id number])] polymyxin B Allergy Rash/Hives Verified 10/17/22 12:42 [From Neosporin ([id number])] sulfamethoxazole Allergy Itching Verified 10/17/22 12:42 [From Bactrim] trimethoprim [From Bactrim] Allergy Itching Verified 10/17/22 12:42 Physical Examination - Vital Signs Vital Signs: Vital Signs Temp Pulse Pulse Resp BP BP Pulse Ox 10/17/22 16:08 97.6 F 60 14 147/85 97 10/17/22 15:25 98.1 F 58 L 18 134/74 99 10/17/22 14:50 56 L 18 128/64 97 10/17/22 14:35 58 L 18 130/78 98 10/17/22 14:20 58 L 18 134/71 98 10/17/22 14:05 60 18 141/72 100 10/17/22 13:50 62 18 139/70 99 10/17/22 13:35 68 18 145/72 99 10/17/22 13:20 72 18 142/79 100 10/17/22 13:00 69 18 151/81 98 10/17/22 12:50 61 18 160/79 10/17/22 12:43 75 18 165/83 100 10/17/22 12:34 97.8 F 70 18 100 Intake and Output 10/17/22 10/17/22 10/17/22 06:59 14:59 22:59 Other: Weight 122.47 kg 122.47 kg Patient is a middle aged female, in no acute distress. Patient is alert awake oriented to time place and person. Speech and language functions are normal. Patient can name and repeat very well. No aphasia or dysarthria. Attention, concentration and fund of knowledge is adequate. On cranial nerve examination, pupils are equal, round and reacting to light, visual whitmore are full on confrontation, with no neglect on double simultaneous stimulation. Extraocular muscles are intact with no nystagmus. Face is symmetric, tongue protrudes to the midline. Palatal elevation and sensation normal, hearing and shoulder shrug normal, facial sensation normal. On muscle strength testing, there is very minimal right pronation, no drift. The strength is normal in arms and legs distally and proximally, except right english composition instructor, which is 5-. Deep tendon reflexes are symmetric 1+ at the biceps, 1 brachioradialis, 2 at the knees, 1 ankles and plantars downgoing bilaterally. Sensory to touch is equal with no neglect on double simultaneous stimulation. Cerebellar function showed no ataxia for fruzyw-rn-xxur testing. No dysdiadochokinesia. No ataxia for gytr-tp-sift testing on either side. Tone and bulk of muscles normal. Gait deferred.. On general examination, there is no carotid bruit or murmur, S1-S2 audible. Chest is clear on consultation. Abdomen is soft nontender. No organomegaly, bowel sounds present. Peripheral pulses are present. No edema. Results - Laboratory Findings CBC and BMP: 10/17/22 12:48 10/17/22 12:48 Abnormal Lab Findings: Abnormal Labs 10/17/22 10/17/22 10/17/22 12:43 12:48 12:48 RBC 5.44 H Hct 46.3 H Glucose 120 H POC Glucose (mg/dL) 142 H AST 43 H ALT 64 H Total Protein 8.4 H Assessment and Plan Assessment: * Possible acute stroke/TIA. Patient has presented with right lower facial and distal arm numbness. * Hypertension * History of stage I breast cancer, status post mastectomy * History of DVT post knee surgery Plan: * MRI of the brain without contrast, evaluate for acute CVA * 2-D echo with bubble study to rule out PFO * CTA head and neck showed: No evidence of dissection of the cervical internal carotid arteries or vertebral arteries are significant stenosis in the carotid bifurcations. No evidence of intracranial high-grade stenosis or intracranial aneurysm. * Patient started on aspirin 325 mg daily. * Fasting a.m. lipid panel * Hemoglobin A1c * Permissive hypertension for next 24-48 hours * Close neuro checks as per protocol. * Telemetry monitoring rule out any arrhythmia * DVT prophylaxis: Heparin 5000 units subcu every 8 hours * Neurology will continue ot follow. Thank you for the consult.
[2022-10-18] MEDS: LEVOTHYROXINE 137 MCG TAB PO SCH (05:55)
[2022-10-18] MEDS: LEVOTHYROXINE 25 MCG TAB PO SCH (05:55)
[2022-10-18] MEDS: ACETAMINOPHEN TAB 325 MG TAB PO PRN ×2 (05:57→21:31)
[2022-10-18 08:15] LABS: HCT 40.7 % (34.0-46.0); HGB 13.9 gm/dL (11.4-16.0); MCH 29.6 pg (25.0-35.0); MCHC 34.1 g/dL (31.0-37.0); MCV 86.7 fL (80.0-100.0); Mean Platelet Volume 8.5; Platelet Count 210 k/uL (150-450); WBC 7.4 k/uL (3.8-10.6)
[2022-10-18 08:30] LABS: ALT 49 U/L (4-34); AST 33 U/L (14-36); African American GFR (CKD) >90 (>60 ml/min/1.73 sqM); Albumin 4.1 g/dL (3.5-5.0); Alkaline Phosphatase 70 U/L (38-126); Anion Gap 7 mmol/L; Blood Urea Nitrogen 11 mg/dL (7-17); Calcium 9.1 mg/dL (8.4-10.2); Carbon Dioxide 24 mmol/L (22-30); Chloride 106 mmol/L (98-107); Glucose 103 mg/dL (74-99); Magnesium 1.9 mg/dL (1.6-2.3); Non-African American GFR(CKD) >90 (>60 ml/min/1.73 sqM); Potassium 4.7 mmol/L (3.5-5.1); Sodium 137 mmol/L (137-145); Total Bilirubin 0.6 mg/dL (0.2-1.3); Total Protein 6.7 g/dL (6.3-8.2)
[2022-10-18] MEDS ORDERED: ASPIRIN 325 MG TAB PO SCH (09:00)
[2022-10-18] MEDS ORDERED: NON FORMULARY DRUG (Alendronate Sodium [Alendronate Sodium] 70 MG Tablet) PO SCH (09:00)
[2022-10-18] MEDS: PANTOPRAZOLE 40 MG TABLET PO SCH (09:13)
[2022-10-18] MEDS: CHOLECALCIFEROL 25 MCG (1000 IU) TABLET PO SCH (09:13)
[2022-10-18] MEDS: ASPIRIN 81 MG PO SCH (09:13)
[2022-10-18] MEDS: ANASTROZOLE 1 MG TAB PO SCH (09:13)
[2022-10-18] MEDS: CALCIUM CARBONATE 500 MG CHEWABLE PO SCH (09:13)
[2022-10-18] MEDS: ENOXAPARIN 40 MG/0.4 ML SYRINGE SQ SCH (09:14)
[2022-10-18 10:42] LABS: Chol/HDL Ratio 5.07 Ratio; LDL Cholesterol,Calculated 126.3 mg/dL (0.0-131.0); VLDL Calculation 16.58 mg/dL (5.00-40.00)
--- NOTE | 2022-10-18 11:23 | P.PN ---
Subjective Progress Note Date: 10/18/22 Hospital course: Patient is a very pleasant 57-year-old female with a past medical history of left-sided breast cancer status post mastectomy and reconstruction 2017, thyroid nodule status post complete thyroidectomy 1995, melanoma status post removal of melanoma on back in 2010, a cavernous carotid aneurysm and GERD. She presented to the emergency department via EMS as a code stroke. Per documentation in chart EMS stated patient developed sudden onset right-sided facial droop and upper extremity numbness/weakness reportedly witnessed by her beginning approximately at 11:45 AM and EMS was called immediately. Upon arrival to the emergency department patient was seen and fully evaluated by ED physician and received an NIH score of 3. Blood glucose was 142. Patient underwent stat CT brain which was negative for acute intercranial process with reports of a left middle cranial fossa arachnoid cyst. CTA head negative for acute intercranial p rocess. CTA neck negative showing no evidence of dissection or significant stenosis. CBC, coags, and CMP were completed. Labs reviewed with CBC showing no significant abnormalities, coags unremarkable, BMP unremarkable, and liver profile revealing slightly elevated AST of 43 and ALT of 64. Troponin was negative at less than 0.012 and EKG was completed showing normal sinus rhythm at 63 bpm with no noted T-wave or ST abnormalities showing no signs of acute ischemia. Chest x-ray negative for acute cardiopulmonary process. ED physician discussed patient and her presenting signs and symptoms, NIH score, and imaging results with interventional neurologist Dr. Rubio and per documentation in chart, interventional neurologist did not feel that patient met criteria for alteplase administration at that time secondary to low NIH scores as risks would outweigh the benefits. Patient was accepted for admission under our services with consultation to neurology at this time. Physical exam: Patient seen and fully evaluated at bedside this morning. Patient reports full resolution of previous tingling to right side of face and right hand. She re ports she continues to have tingling only and fourth and fifth fingers of right hand. Upon evaluation patient now with equal and strong bilateral upper extremity strength and eyeglass frames polisher and also now has normal [id number] with no longer passpointing. Her speech remains clear and she continues to deny having any headache, lightheadedness, changes in vision or hearing, chest pain, palpitations, or shortness of breath. Patient reports she has full resolution of previously reported nausea. Morning labs reviewed and remain unremarkable. AST back to normal at 33 and ALT was only slightly elevated at 49. Lipid profile resulting in unremarkable with the exception of low HDL of 35.10. Hemoglobin A1c 5.1%. Vital signs reviewed and stable. General: Nontoxic, no distress and appears stated age. Derm: Skin warm and dry, normal coloration for ethnicity. Head: Atraumatic, normocephalic and symmetric. Eyes: EOMs intact, no lid lag, and anicteric sclera Mouth: no lip lesions, mucus membranes moist Cardiovascular: regular rate and rhythm with normal S1S2, no murmur, positive posterior tibial pulses bilaterally, and cap refill < 2 seconds. Lungs: Respirations even, regular, and unlabored on room air. Lungs CTA bilaterally, no rhonchi, no rales, no wheezing, and no accessory muscle usage. Abdominal: soft, nontender to palpation, no guarding, no appreciable organomegaly Ext: ROM intact. No gross muscle atrophy, no edema, no contractures. Movement and sensation intact. Patient with bilateral upper extremity equal eyeglass frames polisher and strength today, with normal ceukin-gg-jegi. Normal upap-tz-[id number]. Equal and strong strength bilateral lower extremities. Neuro: Speech clear, face symmetrical and CN II-XII grossly intact. Patient does report continued tingling sensation to right fourth and fifth fingers only. Psych: Alert and oriented to person, place, time, and situation. Appropriate and pleasant affect. Assessment and Plan of Care: Right-sided facial and right upper extremity parathesias and weakness, concerning for CVA -CT head, CTA head, and CTA neck negative for acute abnormalities. -NIH stroke scale, initial NIH score 3 -Neuro checks -Neurology following -Patient to continue with Aspirin and atorvastatin -Lipid profile unremarkable with the exception of low HDL of 35.10. Hemoglobin A1c 5.1%. -Echocardiogram -MRI -PT/OT consulted Hypothyroidism status post complete thyroidectomy -Continue with daily medication regimen consisting of levothyroxine History of breast cancer status post mastectomy with lymph node removal -Nursing communication placed for no lab draws or blood pressures in left arm. -Continue alendronate History of cavernous carotid aneurysm -Patient to continue to follow with Dr. Ezequiel Faith out of the [facility] in [place] CODE STATUS: Full code DVT prophylaxis: enoxaparin 40mg Discussed with: Patient and RN Anticipated discharge date: Tomorrow Anticipated discharge place: home A total of 36 minutes was spent on the care of this complex patient more than 50% of the time was spent in counseling and care coordination. Objective - Vital Signs Vital signs: Vital Signs Temp 98 F 10/18/22 03:51 Pulse 61 10/18/22 03:51 Resp 18 10/18/22 03:51 BP 117/55 10/18/22 03:51 Pulse Ox 92 L 10/18/22 03:51 FiO2 Intake & Output 10/17/22 10/18/22 10/18/22 18:59 06:59 18:59 Weight 122.47 kg Other: Voiding Method Toilet # Voids 1 - Labs CBC & Chem 7: 10/18/22 07:13 10/18/22 07:13 Labs: Abnormal Lab Results - Last 24 Hours (Table) 10/17/22 10/17/22 10/17/22 Range/Units 12:43 12:48 12:48 RBC 5.44 H (3.80-5.40) m/uL Hct 46.3 H (34.0-46.0) % Glucose 120 H (74-99) mg/dL POC Glucose (mg/dL) 142 H (70-110) mg/dL AST 43 H (14-36) U/L ALT 64 H (4-34) U/L Total Protein 8.4 H (6.3-8.2) g/dL
[2022-10-18] MEDS: ATORVASTATIN 40 MG TAB PO SCH (21:28)
--- NOTE | 2022-10-18 22:47 | P.PN ---
Subjective Progress Note Date: 10/18/22 Patient was seen for a follow-up. Patient is laying comfortably in the bed. Also walking around normally. Patient states that the numbness of the facial region has resolved. She has some paresthesias involving the medial 2 digits of the right hand. No new neurological symptoms. Objective - Vital Signs Vital signs: Vital Signs Temp 98.7 F 10/18/22 15:14 Pulse 60 10/18/22 15:14 Resp 18 10/18/22 15:14 BP 117/69 10/18/22 15:14 Pulse Ox 98 10/18/22 15:14 FiO2 Intake & Output 10/17/22 10/18/22 10/18/22 18:59 06:59 18:59 Weight 122.47 kg Other: Voiding Method Toilet # Voids 1 2 - Exam Mental status, speech and language functions are normal. Cranial nerves are normal. Muscle strength no drift. Strength is normal. No ataxia. 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 Sensations equal bilaterally. No neglect. Gait is normal. - Labs CBC & Chem 7: 10/18/22 07:13 10/18/22 07:13 Labs: Abnormal Lab Results - Last 24 Hours (Table) 10/18/22 Range/Units 07:13 Glucose 103 H (74-99) mg/dL ALT 49 H (4-34) U/L HDL Cholesterol 35.10 L (40.00-60.00) mg/dL Assessment and Plan Assessment: * Possible acute stroke/TIA. Patient has presented with right lower facial and distal arm numbness, and minimal right hand weakness. * Hypertension * History of stage I breast cancer, status post mastectomy * History of DVT post knee surgery * History of cerebral aneurysms, very small, 2.5 mm. Plan: * MRI of the brain without contrast, evaluate for acute CVA * 2-D echo with bubble study to rule out PFO * CTA head and neck showed: No evidence of dissection of the cervical internal carotid arteries or vertebral arteries are significant stenosis in the carotid bifurcations. No evidence of intracranial high-grade stenosis or intracranial aneurysm. * Regarding her cerebral aneurysm, patient was recommended to follow-up with her neurosurgeon Dr. Ezequiel Faith in [place]. Patient was also informed about visiting a neuro intervention for possible cerebral angiogram and coiling if indicated. Patient's name of Dr. Talley and Dr Guadarrama were provided. * Patient started on aspirin 325 mg daily. Avoid DAP at this time due to history of cerebral aneurysm. * Fasting a.m. lipid panel cholesterol 178, LDL 126, HDL 35 and triglycerides 178. Patient started on Lipitor 40 mg daily. * Hemoglobin A1c 5.1. * Permissive hypertension for next 24-48 hours * Close neuro checks as per protocol. * Telemetry monitoring rule out any arrhythmia * DVT prophylaxis: Patient on Lovenox 40 mg subcu daily. * Dr. Rakesh Thompson Will resume neurology service in the morning.
[2022-10-18] MEDS: MELATONIN 5 MG TABLET PO PRN (22:57)
[2022-10-19] MEDS: LEVOTHYROXINE 25 MCG TAB PO SCH (06:23)
[2022-10-19] MEDS: LEVOTHYROXINE 137 MCG TAB PO SCH (06:24)
[2022-10-19] MEDS: ASPIRIN 81 MG PO SCH (08:33)
[2022-10-19] MEDS: PANTOPRAZOLE 40 MG TABLET PO SCH (08:33)
[2022-10-19] MEDS: CALCIUM CARBONATE 500 MG CHEWABLE PO SCH (08:33)
[2022-10-19] MEDS: ANASTROZOLE 1 MG TAB PO SCH (08:34)
[2022-10-19] MEDS: CHOLECALCIFEROL 25 MCG (1000 IU) TABLET PO SCH (08:34)
[2022-10-19] MEDS: ENOXAPARIN 40 MG/0.4 ML SYRINGE SQ SCH (08:34)
[2022-10-19] MEDS ORDERED: LORazepam 2 MG/ML INJ IV ONE (10:00)
--- NOTE | 2022-10-19 11:40 | MR ---
EXAMINATION TYPE: MR brain wo con DATE OF EXAM: 10/19/2022 COMPARISON: NONE HISTORY: Stroke/TIA TECHNIQUE: T1-weighted sagittal, T2, FLAIR, and diffusion axial, and T2 coronal coronal views of the brain are submitted. FINDINGS: There is no evidence of acute ischemia. The ventricles, basal cisterns, and sulci overlying the conv exities are consistent with the patient's age. There is no mass effect. Regular tonsils low-lying in position. Sella turcica has a normal appearance. There is a 3 x 2.9 cm f luid-filled signal lesion in the anterior left temporal fossa with mass effect and compression of the left temporal lobe compatible with a arachnoid cyst. No cerebellopontine angle mass. Changes of mild chronic sinusitis. Orbits symmetric. IMPRESSION: 1. No acute intracranial process 2. There is a 3 x 2.9 cm anterior temporal fossa arachnoid cyst causing compression of the anterior m argin of the left temporal lobe. Correlate clinically. 3. low-lying cerebellar tonsils without evidence of discrete Chiari malformation.
--- NOTE | 2022-10-19 17:43 | P.PN ---
Subjective Progress Note Date: 10/19/22 Hospital course: Patient is a very pleasant 57-year-old female with a past medical history of left-sided breast cancer status post mastectomy and reconstruction 2017, thyroid nodule status post complete thyroidectomy 1995, melanoma status post removal of melanoma on back in 2010, a cavernous carotid aneurysm and GERD. She presented to the emergency department via EMS as a code stroke. Per documentation in chart EMS stated patient developed sudden onset right-sided facial droop and upper extremity numbness/weakness reportedly witnessed by her beginning approximately at 11:45 AM and EMS was called immediately. Upon arrival to the emergency department patient was seen and fully evaluated by ED physician and received an NIH score of 3. Blood glucose was 142. Patient underwent stat CT brain which was negative for acute intercranial process with reports of a left middle cranial fossa arachnoid cyst. CTA head negative for acute intercranial p rocess. CTA neck negative showing no evidence of dissection or significant stenosis. CBC, coags, and CMP were completed. Labs reviewed with CBC showing no significant abnormalities, coags unremarkable, BMP unremarkable, and liver profile revealing slightly elevated AST of 43 and ALT of 64. Troponin was negative at less than 0.012 and EKG was completed showing normal sinus rhythm at 63 bpm with no noted T-wave or ST abnormalities showing no signs of acute ischemia. Chest x-ray negative for acute cardiopulmonary process. ED physician discussed patient and her presenting signs and symptoms, NIH score, and imaging results with interventional neurologist Dr. Rubio and per documentation in chart, interventional neurologist did not feel that patient met criteria for alteplase administration at that time secondary to low NIH scores as risks would outweigh the benefits. Patient was accepted for admission under our services with consultation to neurology at this time. She underwent a 3 day hospitalization. During that time patient had full resolution of previously reported neuro deficits. Lipid profile resulting in unremarkable with the exception of low HDL of 35.10. Hemoglobin A1c 5.1%. MRI brain was completed and negative for acute intercranial process revealing a 3 cm x 2.9 cm anterior temporal fossa arachnoid cyst causing compression of the anterior margin of the left temporal lobe. Discussed these findings with the neurologist, .he reports he pulled a previous CTs and arachnoid cyst is stable and unchanged in size. Dr. Beckman stating patient cleared from neurological standpoint for outpatient follow-up only if echocardiogram results are normal he is re commending patient continue with low-dose aspirin, atorvastatin, and follow up outpatient with her neurosurgeon Dr. Ezequiel Faith out of [place] for long- term monitoring/management. Echocardiogram pending. Patient was given the option to be discharged and follow up for echocardiogram results outpatient or stay in hospital an extra night and wait for echocardiogram results as advised by neurologist. Patient made the decision to stay for these results. Physical exam: Patient seen and fully evaluated at bedside this morning. Patient reports full resolution of previously reported neurological deficits/symptoms. Patient has equal and full strength of upper and lower extremities bilaterally. She denies having any further numbness/tingling or paresthesias stating all symptoms fully resolved. Vital signs are unremarkable. Blood pressure 124/72, heart rate 72, and respiratory rate 16 with SpO2 of 98% on room air. Patient free from any co mplaints or concerns at this time. Vital signs reviewed and stable. General: Nontoxic, no distress and appears stated age. Derm: Skin warm and dry, normal coloration for ethnicity. Head: Atraumatic, normocephalic and symmetric. Eyes: EOMs intact, no lid lag, and anicteric sclera Mouth: no lip lesions, mucus membranes moist Cardiovascular: regular rate and rhythm with normal S1S2, no murmur, positive posterior tibial pulses bilaterally, and cap refill < 2 seconds. Lungs: Respirations even, regular, and unlabored on room air. Lungs CTA bilaterally, no rhonchi, no rales, no wheezing, and no accessory muscle usage. Abdominal: soft, nontender to palpation, no guarding, no appreciable or ganomegaly Ext: ROM intact. No gross muscle atrophy, no edema, no contractures. Movement and sensation intact. Patient with bilateral upper extremity equal field coordinator and strength today, with normal [id number]. Normal [id number]. Equal and strong strength bilateral lower extremities. Neuro: Speech clear, face symmetrical and CN II-XII grossly intact. Patient does report continued tingling sensation to right fourth and fifth fingers only. Psych: Alert and oriented to person, place, time, and situation. Appropriate and pleasant affect. Assessment and Plan of Care: TIA with Right-sided facial and right upper extremity parathesias and weakness. All neurological deficits resolved. CT head and CTA head and neck negative for acute process. MRI brain was completed and negative for acute intercranial pr ocess revealing a 3 cm x 2.9 cm anterior temporal fossa arachnoid cyst causing compression of the anterior margin of the left temporal lobe. Discussed these findings with the neurologist, .he reports he pulled up previous CTs and arachnoid cyst is stable and unchanged in size. Dr. Beckman recommending patient continue with low-dose aspirin and atorvastatin for treatment of TIA and for her to follow up outpatient with her neurosurgeon Dr. Ezequiel Faith out of [place] for long-term monitoring/management. -Patient cleared for discharge once echocardiogram results are available. Pat ient sent to seed analysis laboratory assistant and awaiting echocardiogram to be read. Anterior temporal fossa arachnoid cyst, recommend patient follow up outpatient with Dr. Ezequiel Faith for long-term monitoring/management. Hypothyroidism status post complete thyroidectomy. Continue with daily medication regimen consisting of levothyroxine History of breast cancer status post mastectomy with lymph node removal. Continue alendronate History of cavernous carotid aneurysm. Patient to continue to follow with Dr. Ezequiel Faith out of the [facility] in [place] CODE STATUS: Full code DVT prophylaxis: enoxaparin 40mg Discussed with: Patient and RN Anticipated discharge date: Once echocardiogram results are available Anticipated discharge place: home A total of 33 minutes was spent on the care of this complex patient more than 50% of the time was spent in counseling and care coordination. Objective - Vital Signs Vital signs: Vital Signs Temp 98.1 F 10/19/22 04:00 Pulse 61 10/19/22 04:00 Resp 16 10/19/22 04:00 BP 114/63 10/19/22 04:00 Pulse Ox 96 10/19/22 04:00 FiO2 Intake & Output 10/18/22 10/19/22 10/19/22 18:59 06:59 18:59 Other: Voiding Method Toilet # Voids 2 1 - Labs CBC & Chem 7: 10/18/22 07:13 10/18/22 07:13 Labs: Abnormal Lab Results - Last 24 Hours (Table) 10/18/22 Range/Units 07:13 Glucose 103 H (74-99) mg/dL ALT 49 H (4-34) U/L HDL Cholesterol 35.10 L (40.00-60.00) mg/dL
--- NOTE | 2022-10-19 18:01 | CA ---
Transthoracic Echo Report Name: Niyah Castro Age: 57 Gender: F : 1965 Exam Date: 10/19/2022 08:52 Exam Location: [facility] Ht (in): 68 Wt (lb): 270 Ordering Physician: Deena Beckman MD Attending/Referring Phys: Turner Splitter Machine Operator Connie Hoskins RDCS Procedure CPT: Indications: tia Cardiac Hx: Morbid Obesity Technical Quality: Contrast 1: Total Dose (mL): Contrast 2: Total Dose (mL): MEASUREMENTS (Male / Female) Normal Values 2D ECHO LV Diastolic Diameter PLAX 4.9 cm 4.2 - 5.9 / 3.9 - 5.3 cm LV Systolic Diameter PLAX 2.8 cm IVS Diastolic Thickness 1.0 cm 0.6 - 1.0 / 0.6 - 0.9 cm LVPW Diastolic Thickness 1.1 cm 0.6 - 1.0 / 0.6 - 0.9 cm LV Relative Wall Thickness 0.4 RV Internal Dim ED PLAX 3.3 cm LA Systolic Diameter LX 3.7 cm 3.0 - 4.0 / 2.7 - 3.8 cm LA Volume 55.0 cm??? 18 - 58 / 22 - 52 cm??? M-MODE Aortic Root Diameter MM 3.0 cm LA Systolic Diameter MM 3.3 cm LA Ao Ratio MM 1.1 MV E Point Septal Separation 0.6 cm AV Cusp Separation MM 1.9 cm DOPPLER MV Area PHT 3.8 cm??? Mitral E Point Velocity 67.4 cm/s Mitral A Point Velocity 68.8 cm/s Mitral E to A Ratio 1.0 MV Deceleration Time 202.0 ms MV E' Velocity 7.8 cm/s Mitral E to MV E' Ratio 8.6 TR Peak Velocity 205.0 cm/s TR Peak Gradient 16.8 mmHg Right Ventricular Systolic Press 21.8 mmHg FINDINGS Left Ventricle Mildly increased septal wall thickness. Left ventricular cavity size normal. Left ventricular ejection fraction is estimated at 55%. Right Ventricle Right Atrium Normal right atrial size. Left Atrium Mildly increased left atrial volume. BUBBLE STUDY PERFORMED NO BUBBLES NOTED INCONCLUSIVE BUBBLE STUDY. Mitral Valve Structurally normal mitral valve. Mild mitral regurgitation. Aortic Valve Trileaflet aortic valve. Tricuspid Valve Structurally normal tricuspid valve. Mild tricuspid regurgitation. Pulmonic Valve Structurally normal pulmonic valve. Pericardium Echo free space anterior to the right ventricle likely represents a fat pad. Aorta Normal size aortic root and proximal ascending aorta. CONCLUSIONS Preserved LV systolic function ejection fraction greater than 55 7 Bubble study is uninterpretable Previewed by: Dr. Maverick Burns MD (Electronically Signed) Final Date: 19 October 2022 18:00
[2022-10-19] MEDS: ATORVASTATIN 40 MG TAB PO SCH (21:32)
[2022-10-19] MEDS: MELATONIN 5 MG TABLET PO PRN (21:32)
[2022-10-19 22:36] VITALS: RESP 18
[2022-10-20] MEDS: LEVOTHYROXINE 25 MCG TAB PO SCH (05:58)
[2022-10-20] MEDS: LEVOTHYROXINE 137 MCG TAB PO SCH (05:58)
[2022-10-20] MEDS: ANASTROZOLE 1 MG TAB PO SCH (09:22)
[2022-10-20] MEDS: PANTOPRAZOLE 40 MG TABLET PO SCH (09:22)
[2022-10-20] MEDS: CALCIUM CARBONATE 500 MG CHEWABLE PO SCH (09:22)
[2022-10-20] MEDS: ASPIRIN 81 MG PO SCH (09:22)
[2022-10-20] MEDS: CHOLECALCIFEROL 25 MCG (1000 IU) TABLET PO SCH (09:22)
[2022-10-20] MEDS: ENOXAPARIN 40 MG/0.4 ML SYRINGE SQ SCH (09:23)
[2022-10-20 09:46] VITALS: BP 136/72; PULSE 62; TEMP 99.3
--- NOTE | 2022-10-20 10:55 | P.DS ---
Providers Date of admission: 10/17/22 14:38 Expected date of discharge: 10/20/22 Attending physician: Maegan Hernandez MD Consults: 10/17/22 14:41 Consult Physician Routine Consulting Provider: Deena Beckman Consult Reason/Comments: code stroke Do you want consulting provider notified?: Yes Primary care physician: Melly Jaimes Hospital Course: Discharge Diagnosis: TIA Anterior temporal fossa arachnoid cyst Hypothyroidism History of breast cancer status post mastectomy with lymph node removal History of cavernous carotid aneurysm History of provoked DVT Hospital Course: 57-year-old female with a past medical history of left-sided breast cancer status post mastectomy and reconstruction 2017, thyroid nodule status post complete thyroidectomy 1995, melanoma status post removal of melanoma on back in 2010, a cavernous carotid aneurysm and GERD. She presented with sudden onset right-sided facial droop and upper extremity numbness/weakness. Upon arrival to the emergency department patient was seen and fully evaluated by ED physician and received an NIH score of 3. Blood glucose was 142. CT head was negative for acute intercranial process with reports of a left middle cranial fossa arachnoid cyst. CTA head negative for acute intercranial process. CTA neck negative showing no evidence of dissection or significant stenosis. Labs reviewed with CBC showing no significant abnormalities, coags unremarkable, BMP unremarkable, and liver profile revealing slightly elevated AST of 43 and ALT of 64. Troponin was negative at less than 0.012 and EKG was completed showing normal sinus rhythm at 63 bpm with no noted T-wave or ST abnormalities showing no signs of acute ischemia. Chest x-ray negative for acute cardiopulmonary process. ED physician discussed patient and her presenting signs and symptoms, NIH score, and imaging results with interventional neurologist Dr. Rubio and per documentation in chart, interventional neurologist did not feel that patient met criteria for alteplase administration at that time secondary to low NIH scores as risks would outweigh the benefits. Patient had full resolution of previously reported neuro deficits. Lipid profile resulting in unremarkable with the exception of low HDL of 35.10. Hemoglobin A1c 5.1%. MRI brain was completed and negative for acute intercranial process revealing a 3 cm x 2.9 cm anterior temporal fossa arachnoid cyst causing compression of the anterior margin of the left temporal lobe. Per neurology, patient to be discharged home with aspirin and statin, and follow-up with neurosurgery Dr. Ezequiel Faith out of [place] for long-term monitoring/management of arachnoid cyst. Echocardiogram showed preserved EF, bubble study was uninterpretable. Patient seen and examined at bedside. Vital signs reviewed and stable. General: nontoxic, no distress, appears at stated age Derm: warm, dry Head: atraumatic, normocephalic, symmetric Eyes: EOMI, no lid lag, anicteric sclera Mouth: no lip lesion, mucus membranes moist Cardiovascular: S1S2 reg, no murmur Lungs: CTA bilateral, no rhonchi, no rales , no accessory muscle use Abdominal: soft, nontender to palpation, no guarding, no appreciable organomegaly Ext: no gross muscle atrophy, no edema, no contractures Neuro: CN II-XI grossly intact, no focal neuro deficits Psych: Alert, oriented, appropriate affect A total of 35 minutes of time were spent preparing this complex discharge summary. Patient was discharged on 10/20/22 at 9:59. Patient Condition at Discharge: Stable Plan - Discharge Summary Discharge Rx Participant: No New Discharge Prescriptions: New Atorvastatin [Lipitor] 40 mg PO HS 30 Days #30 tab Aspirin 81 mg PO DAILY 30 Days #30 tab Continue Lansoprazole [Prevacid] 30 mg PO DAILY Anastrozole [Arimidex] 1 mg PO DAILY Levothyroxine Sodium [Synthroid] 25 mcg PO DAILY Alendronate Sodium 70 mg PO LEWIS Calcium Carbonate [Calcium] 600 mg PO DAILY Levothyroxine Sodium [Synthroid] 137 mcg PO DAILY ALPRAZolam [Xanax] 0.25 mg PO BID PRN PRN Reason: Anxiety Cholecalciferol [Vitamin D3 (25 Mcg = 1000 Iu)] 25 mcg PO DAILY Clobetasol 0.05% Solution 1 applic TOPICAL BID PRN PRN Reason: skin issues Discharge Medication List Lansoprazole [Prevacid] 30 mg PO DAILY 02/21/18 [History] Anastrozole [Arimidex] 1 mg PO DAILY 08/08/19 [History] ALPRAZolam [Xanax] 0.25 mg PO BID PRN 12/03/21 [History] Alendronate Sodium 70 mg PO LEWIS 12/03/21 [History] Levothyroxine Sodium [Synthroid] 25 mcg PO DAILY 12/03/21 [History] Levothyroxine Sodium [Synthroid] 137 mcg PO DAILY 12/03/21 [History] Calcium Carbonate [Calcium] 600 mg PO DAILY 10/17/22 [History] Cholecalciferol [Vitamin D3 (25 Mcg = 1000 Iu)] 25 mcg PO DAILY 10/17/22 [History] Clobetasol 0.05% Solution 1 applic TOPICAL BID PRN 10/17/22 [History] Aspirin 81 mg PO DAILY 30 Days #30 tab 10/19/22 [Rx] Atorvastatin [Lipitor] 40 mg PO HS 30 Days #30 tab 10/19/22 [Rx] Follow up Appointment(s)/Referral(s): Melly Jaimes MD [Primary Care Provider] - 10/26/22 2:00 pm Ezequiel aFith MD [REFERRING] - 1 Week (pt will call and schedule follow up appointment) Patient Instructions/Handouts: Transient Ischemic Attack (DC) Activity/Diet/Wound Care/Special Instructions: Activity: As tolerated. Take breaks as needed. Diet: Heart healthy and carb consistent diet. Avoid salts, or foods with hidden salts such as canned or boxed foods and frozen dinners. Extra salt makes your heart work harder and traps the fluid in your body for longer. Special Instructions: Take all of your medications as directed and remember to keep all of your doctor's appointments and follow-up as needed. Recommend following up with your PCP, Dr. Jaimes in one week as discussed. It is also important for you to follow up with your neurosurgeon Dr. Ezequiel Faith for continued monitoring/management of your cavernous carotid aneurysm and temporal arachnoid cyst. Thank you for allowing us to participate in your care, it was truly a pleasure having you for our patient!!! Discharge Disposition: HOME SELF-CARE
== END 2022-10-20 10:20 | disposition home or self-care (01) | DRG 69 ==
LOC: EC 12:33 → 3SCARD 14:38
PROVIDERS: ADMIT Internal Medicine; ATTEND Internal Medicine
DX: G45.9 Transient cerebral ischemic attack, unspecified (principal); I67.1 Cerebral aneurysm, nonruptured; G93.0 Cerebral cysts; E89.0 Postprocedural hypothyroidism; K21.9 Gastro-esophageal reflux disease without esophagitis; Z79.83 Long term (current) use of bisphosphonates; Z79.811 Long term (current) use of aromatase inhibitors; Z79.890 Hormone replacement therapy; Z79.899 Other long term (current) drug therapy; Z85.3 Personal history of malignant neoplasm of breast; Z86.718 Personal history of other venous thrombosis and embolism; Z85.820 Personal history of malignant melanoma of skin; Z88.3 Allergy status to other anti-infective agents; Z88.2 Allergy status to sulfonamides
CPT/HCPCS: 36415; 70450; 70496; 70498; 70551; 71046; 80053; 80061; 83036; 83735; 84484; 85025; 85027; 85610; 85730; 93005; 93306; 96374; 96375; 96376; 99291

== ENCOUNTER → 2022-10-23 | Outpatient (CLI) | payer BC ==
--- NOTE | 2022-10-23 07:26 | MM ---
Reason for Exam: Clinical finding. Last screening mammogram was performed 11 month(s) ago. Patient History: Menarche at age 10. First Full-Term at age 32. Late child-bearing (after 30). Postmenopausal. Other cancer, age 44. Breast cancer, age 52. Hormonal Contraceptives for 16 years from age 16 until age 33. 02/2019, Reduction on the Right side. 2017, Mastectomy on the Left side. 12/18/2011, Benign Excisional Biopsy on the left side. 04/01/2020, Benign Core Biopsy on the right side. 08/17/2019, Benign Core Biopsy on the left side. 04/18/2018, Core Biopsy on the Left side. 03/09/2018, Benign Cyst Aspiration on the left side. 03/09/2018, Malignant Core Biopsy on the left side. 03/09/2018, Malignant Core Biopsy on the left side. 02/24/2018, Malignant Core Biopsy on the left side. 2017, Implant on the left side. Implant on the left side. Maternal aunt had breast cancer, age 40. Maternal aunt had breast cancer, age 40. Prior Study Comparison: 04/01/2020 Right Diagnostic Mammogram, [facility]. 10/16/2020 Right Diagnostic Mammogram, [facility]. 11/13/2021 Right Diagnostic Mammogram, [facility]. Tissue Density: Right: There are scattered fibroglandular densities. Findings: Analyzed By CAD. No new suspicious mass or worrisome cluster of microcalcifications within the right breast. Previous mammotome biopsy of the right breast. No significant new findings from prior exam. Overall Assessment: Incomplete: need additional imaging evaluation, BI-RAD 0 Management: Diagnostic Breast Ultrasound of the right breast. A clinical breast exam by your physician is recommended on an annual basis and results should be correlated with mammographic findings. This exam should not preclude additional follow-up of suspicious palpable abnormalities. Results were given to the patient verbally at the time of exam. Electronically signed and approved by: Elliot Nayak D.O.
--- NOTE | 2022-10-23 07:53 | USB ---
Reason for Exam: Clinical finding. Patient History: Menarche at age 10. First Full-Term at age 32. Late child-bearing (after 30). Postmenopausal. Other cancer, age 44. Breast cancer, age 52. Hormonal Contraceptives for 16 years from age 16 until age 33. 02/2019, Reduction on the Right side. 2017, Mastectomy on the Left side. 12/18/2011, Benign Excisional Biopsy on the left side. 04/01/2020, Benign Core Biopsy on the right side. 08/17/2019, Benign Core Biopsy on the left side. 04/18/2018, Core Biopsy on the Left side. 03/09/2018, Benign Cyst Aspiration on the left side. 03/09/2018, Malignant Core Biopsy on the left side. 03/09/2018, Malignant Core Biopsy on the left side. 02/24/2018, Malignant Core Biopsy on the left side. 2017, Implant on the left side. Implant on the left side. Maternal aunt had breast cancer, age 40. Maternal aunt had breast cancer, age 40. Technique: Method: Targeted. Prior Study Comparison: 04/01/2020 Right Diagnostic Mammogram, [facility]. 10/16/2020 Right Diagnostic Mammogram, [facility]. 11/13/2021 Right Diagnostic Mammogram, [facility]. Findings: The upper outer quadrant of the right breast, the axilla of the right breast and the retroareolar of the right breast were scanned. Targeted ultrasound of the right breast from 9-10 o'clock patient's region of palpable abnormality was obtained. There is biopsy clip demonstrate this area with scarring. No suspicious solid or cystic mass demonstrated in this region. Additional evaluation of the nipple and axillary tail are unremarkable. Additional evaluation at 4:00 of the right breast 3 cm from nipple demonstrates a stable to marginally increase in size hyperechoic ovoid mass measuring 1.6 x 0.6 x 1.3 cm without posterior acoustic features or internal color flow consistent with known lipoma. Previously it measured 1.0 x 0.6 x 0.9 cm. Overall Assessment: Benign, BI-RAD 2 Management: Screening Mammogram of the right breast in 1 year. A clinical breast exam by your physician is recommended on an annual basis and results should be correlated with mammographic findings. This exam should not preclude additional follow-up of suspicious palpable abnormalities. Results were given to the patient verbally at the time of exam. Electronically signed and approved by: Elliot Nayak D.O.
== END | disposition home or self-care (01) ==
LOC: RADMAMWWP 06:55
PROVIDERS: ATTEND Internal Medicine
DX: C50.912 Malignant neoplasm of unspecified site of left female breast (principal); N60.02 Solitary cyst of left breast; M80.00XA Age-related osteoporosis with current pathological fracture, unspecified site, initial encounter for fracture; Z78.0 Asymptomatic menopausal state; Z80.3 Family history of malignant neoplasm of breast
CPT/HCPCS: 77061; 77065

== ENCOUNTER 2022-12-25 06:19 | Day surgery (SDC) | payer BC ==
[2022-12-25 06:44] VITALS: RESP 18; TEMP 98.1
[2022-12-25] MEDS ORDERED: SODIUM CHLORIDE 0.9% 500 ML 500 ML IV ONE (06:44)
[2022-12-25] MEDS ORDERED: fentaNYL (PF) 50 MCG/ML 2 ML AMP ONE (08:13)
[2022-12-25] MEDS: BENZOCAINE SPRAY 1 CAN MUCOUS MEM ONE ×2 (08:18→08:44)
[2022-12-25] MEDS ORDERED: MIDAZOLAM 2 MG/2 ML VIAL IV ONE (08:44)
[2022-12-25] MEDS ORDERED: fentaNYL (PF) 50 MCG/ML 2 ML AMP IV ONE (08:44)
[2022-12-25] MEDS: MIDAZOLAM 2 MG/2 ML VIAL IV ONE ×2 (08:45→08:47)
--- NOTE | 2022-12-25 09:13 | P.PCN ---
Date of Procedure: 12/25/22 Operative Findings: TRANSESOPHAGEAL ECHOCARDIOGRAM [employer] EXECUTIVE DIRECTOR: JOSUE SÁNCHEZ MD, RPVI INDICATION: TIA and rule out cardiac source of embolization SEDATION: Conscious sedation COMPLICATION: None LEVEL OF SEDATION 10 minutes of conscious sedation PROCEDURE DESCRIPTION: After obtaining an informed consent, the patient was brought to transesophageal echocardiogram room. Pulse oximetry and heart monitors were attached to the patient. The patient throat was sprayed using lidocaine. The patient was turned into left lateral position. After that a bite guard was placed. After an appropriate conscious sedation was initiated, the transesophageal echocardiogram was advanced through a bite guard into the mid esophagus. A 2-D echocardiogram images, color Doppler images, continuous wave images, pulse-wave images, of various cardiac structure were performed. After that the transesophageal echocardiogram probe was advanced into the stomach and fixed to obtain transgastric view was. The probe was brought into the mid esophagus. Inter-atrial septum was interrogated using 2D images, color Doppler images, and then contrast study. After that transesophageal echocardiogram was withdrawn out and upon withdrawing the descending thoracic aorta all the way up to the arch was evaluated. FINDING: The LV dimension and systolic function appeared to be within normal limits. The ejection fraction appears to be in the range of 50-55%. The right ventricle appeared to be of normal size and function. The left atrium and right atrial appeared to be within normal limits for dimension. The left atrial appendage appeared to be free from any thrombus. The interatrial septum appears to be intact. The aortic valve is trileaflet valve with no stenosis or regurgitation. The mitral valve appears to be mildly thickened with moderate mitral regurgitation. Mild tricuspid regurgitation was seen. No evidence of pericardial effusion identified. CONCLUSION: 1. No evidence of cardiac source of embolization 2. Intact interatrial septum. Intact left atrial appendage 3. Normal biventricular dimension and systolic function 4. Trileaflet aortic valve with no stenosis or regurgitation and no masses identified 5. Moderate mitral regurgitation. 6. No evidence of pericardial effusion
[2022-12-25 09:50] VITALS: BP 108/72; PULSE 71
== END 2022-12-25 10:01 | disposition home or self-care (01) ==
LOC: CATHCVL 06:19
PROVIDERS: ATTEND Internal Medicine Interventional Cardiology
DX: G45.9 Transient cerebral ischemic attack, unspecified (principal); I34.0 Nonrheumatic mitral (valve) insufficiency; E78.5 Hyperlipidemia, unspecified; Z82.49 Family history of ischemic heart disease and other diseases of the circulatory system; Z79.82 Long term (current) use of aspirin; Z79.899 Other long term (current) drug therapy
CPT/HCPCS: 93312; 93320; 93325; J2250; J3010

== ENCOUNTER → 2023-03-18 | Outpatient (CLI) | payer BC ==
--- NOTE | 2023-03-18 11:12 | USB ---
Reason for Exam: Clinical finding. Patient History: Menarche at age 10. First Full-Term at age 32. Late child-bearing (after 30). Postmenopausal. Other cancer, age 44. Breast cancer, age 52. Hormonal Contraceptives for 16 years from age 16 until age 33. 02/2019, Reduction on the Right side. 2017, Mastectomy on the Left side. 12/18/2011, Benign Excisional Biopsy on the left side. 04/01/2020, Benign Core Biopsy on the right side. 08/17/2019, Benign Core Biopsy on the left side. 04/18/2018, Core Biopsy on the Left side. 03/09/2018, Benign Cyst Aspiration on the left side. 03/09/2018, Malignant Core Biopsy on the left side. 03/09/2018, Malignant Core Biopsy on the left side. 02/24/2018, Malignant Core Biopsy on the left side. 2017, Implant on the left side. Implant on the left side. Maternal aunt had breast cancer, age 40. Maternal aunt had breast cancer, age 40. Technique: Method: Whole Breast Handheld. Prior Study Comparison: 10/16/2020 Right Diagnostic Mammogram, [facility]. 11/13/2021 Right Diagnostic Mammogram, [facility]. 05/28/2022 Right US breast RT, [facility]. 10/23/2022 Right MG 3D diag mammo w/cad RT, [facility] 10/23/2022 Right US breast limited RT, [facility]. Findings: The whole breast of the left breast, the axilla of the left breast and the retroareolar of the left breast were scanned. Breast implant is intact. At the left 9:00 position 4 cm from the nipple there is a 6 x 3 mm lipoma. No suspicious appearing masses. Clinical correlation advised. Overall Assessment: Benign, BI-RAD 2 Electronically signed and approved by: Lee Reed M.D. Radiologis
== END | disposition home or self-care (01) ==
LOC: RADUSWWP 10:18
PROVIDERS: ATTEND Surgery
DX: N60.02 Solitary cyst of left breast (principal); Z85.3 Personal history of malignant neoplasm of breast; Z78.0 Asymptomatic menopausal state; Z80.3 Family history of malignant neoplasm of breast

== ENCOUNTER → 2023-11-11 | Outpatient (CLI) | payer BC ==
--- NOTE | 2023-11-11 07:32 | MM ---
Reason for Exam: Hx of breast cancer, mastectomy. Last mammogram was performed 1 year(s) and 1 month(s) ago. Patient History: Menarche at age 10. First Full-Term at age 32. Late child-bearing (after 30). Postmenopausal. Other cancer, age 44. Breast cancer, age 52. Hormonal Contraceptives for 16 years from age 16 until age 33. 02/2019, Reduction on the Right side. 2017, Mastectomy on the Left side. 12/18/2011, Benign Excisional Biopsy on the left side. 04/01/2020, Benign Core Biopsy on the right side. 08/17/2019, Benign Core Biopsy on the left side. 04/18/2018, Core Biopsy on the Left side. 03/09/2018, Benign Cyst Aspiration on the left side. 03/09/2018, Malignant Core Biopsy on the left side. 03/09/2018, Malignant Core Biopsy on the left side. 02/24/2018, Malignant Core Biopsy on the left side. 2017, Implant on the left side. Implant on the left side. Maternal aunt had breast cancer, age 40. Maternal aunt had breast cancer, age 40. Prior Study Comparison: 10/16/2020 Right Diagnostic Mammogram, [facility]. 11/13/2021 Right Diagnostic Mammogram, [facility]. 10/23/2022 Right MG 3D diag mammo w/cad RT, [facility]. Tissue Density: Right: The breast tissue is heterogeneously dense. This may lower the sensitivity of mammography. Findings: Analyzed By CAD. Postoperative changes right breast. No evidence for suspicious clustered microcalcifications. No discrete mass or distortion. Ultrasound recommended. Overall Assessment: Incomplete: need additional imaging evaluation, BI-RAD 0 Management: Diagnostic Breast Ultrasound of the right breast. . Results were given to the patient verbally at the time of exam. Patient should continue monthly self-breast exams. A clinical breast exam by your physician is recommended on an annual basis. This exam should not preclude additional follow-up of suspicious palpable abnormalities. Note on Yanely scores and lifetime risk: 1. A Yanely score greater than 3% is considered moderate risk. If this is the case, consider specialist referral to assess eligibility for a risk reducing agent. 2. If overall lifetime risk for the development of breast cancer is 20% or higher, the patient may qualify for future screening with alternating mammogram and breast MRI. Electronically signed and approved by: Lee Reed M.D. Radiologis
--- NOTE | 2023-11-11 08:04 | USB ---
Reason for Exam: Clinical finding. Patient History: Menarche at age 10. First Full-Term at age 32. Late child-bearing (after 30). Postmenopausal. Other cancer, age 44. Breast cancer, age 52. Hormonal Contraceptives for 16 years from age 16 until age 33. 02/2019, Reduction on the Right side. 2017, Mastectomy on the Left side. 12/18/2011, Benign Excisional Biopsy on the left side. 04/01/2020, Benign Core Biopsy on the right side. 08/17/2019, Benign Core Biopsy on the left side. 04/18/2018, Core Biopsy on the Left side. 03/09/2018, Benign Cyst Aspiration on the left side. 03/09/2018, Malignant Core Biopsy on the left side. 03/09/2018, Malignant Core Biopsy on the left side. 02/24/2018, Malignant Core Biopsy on the left side. 2017, Implant on the left side. Implant on the left side. Maternal aunt had breast cancer, age 40. Maternal aunt had breast cancer, age 40. Prior Study Comparison: 10/16/2020 Right Diagnostic Mammogram, [facility]. 11/13/2021 Right Diagnostic Mammogram, [facility]. 10/23/2022 Right MG 3D diag mammo w/cad RT, [facility]. 10/23/2022 Right US breast limited RT, [facility]. Findings: The upper inner quadrant of the right breast, the lateral section of the breast of the right breast, the axilla of the right breast and the retroareolar of the right breast were scanned. 2 lipomas are noted. There is a stable lipoma at the right 4:00 position 3 cm from the nipple measuring 1.4 x 0.7 cm. Additional lipoma is noted at the 1:00 position 8 cm from the nipple measuring 1.8 x 0.7 cm. No solid suspicious masses are seen. Overall Assessment: Benign, BI-RAD 2 Management: Diagnostic Mammogram of the right breast in 1 year. A clinical breast exam by your physician is recommended on an annual basis and results should be correlated with mammographic findings. This exam should not preclude additional follow-up of suspicious palpable abnormalities. Results were given to the patient verbally at the time of exam. Electronically signed and approved by: Lee Reed M.D. Radiologis
== END | disposition home or self-care (01) ==
LOC: RADMAMWWP 07:01
PROVIDERS: ATTEND Obstetrics & Gynecology
DX: D17.79 Benign lipomatous neoplasm of other sites (principal); R92.331 Mammographic heterogeneous density, right breast; Z85.3 Personal history of malignant neoplasm of breast; Z80.3 Family history of malignant neoplasm of breast; Z78.0 Asymptomatic menopausal state; Z90.12 Acquired absence of left breast and nipple
CPT/HCPCS: 77061; 77065

== ENCOUNTER → 2024-02-02 | Outpatient (CLI) | payer BC ==
--- NOTE | 2024-02-02 16:51 | XR ---
EXAMINATION TYPE: XR shoulder complete LT, XR humerus LT DATE OF EXAM: 02/02/2024 4:17 PM CLINICAL INDICATION:Female, 58 years old with history of M79.602 LT ARM PAIN; [facility] COMPARISON: None TECHNIQUE: XR shoulder complete LT, XR humerus LT; examined in AP, internally rotated and scapular Y projections. FINDINGS: No evidence of acute osseous pathology, joint dislocation, or soft tissue swelling. The remaining po rtions of the visualized chest are unremarkable. The humerus is intact without evidence for fracture. Mild degeneration changes of the acromioclavicular, glenohumeral and joints of the elbow with osteop hyte formation and joint spacing. IMPRESSION: 1. No acute osseous pathology. 2. Mild scattered osteoarthrosis changes.
--- NOTE | 2024-02-02 16:53 | XR ---
EXAMINATION TYPE: XR cervical spine w flex/ext DATE OF EXAM: 02/02/2024 4:17 PM CLINICAL INDICATION:Female, 58 years old with history of M79.602 LT ARM PAIN; [facility] COMPARISON: None TECHNIQUE: The cervical spine was imaged in frontal, lateral, odontoid and bilateral oblique. Additio nal bending and flexion views. FINDINGS: The osseous structures show normal alignment without evidence of an acute fracture. There are osteoph ytes noted throughout the cervical spine on the anterior and lateral aspects of the vertebral bodies. The intervertebral disk spaces are narrowed at multiple levels. Pedicles are intact. Soft tissues a re within normal limits. The odontoid appears intact. No abnormal alignment on bending and flexion vi ews. IMPRESSION: 1. No fracture or dislocation. 2. Mild degenerative disc disease changes of the cervical spine.
== END | disposition home or self-care (01) ==
LOC: RADXRMAIN 15:51
PROVIDERS: ATTEND Internal Medicine
DX: M19.012 Primary osteoarthritis, left shoulder (principal); M50.30 Other cervical disc degeneration, unspecified cervical region; M79.602 Pain in left arm
CPT/HCPCS: 72052

== ENCOUNTER 2024-07-27 08:30 | Emergency (ER) | payer BC ==
[2024-07-27 08:36] VITALS: RESP 18; TEMP 97.7
--- NOTE | 2024-07-27 09:14 | ED ---
Back Pain HPI - General Chief Complaint: Back Pain/Injury Stated Complaint: Back Pain Time Seen by Provider: 07/27/24 08:49 Source: patient, RN notes reviewed Limitations: no limitations - History of Present Illness Initial Comments: 59-year-old female presents emergency department complaint of left flank pain. Patient states that she started pain yesterday without known injury. She denies any bowel, bladder and cons retention also anesthesias. Patient states that she has not had a recent bowel movement but that is not unusual for her. She denies any dysuria no history of kidney stones she states this does not feel like a strain of her back. She denies any chest pain or shortness of breath no fever but states that she has had some chills. - Related Data Home Medications Medication Instructions Recorded Confirmed Lansoprazole [Prevacid] 30 mg PO DAILY 02/21/18 12/23/22 Anastrozole [Arimidex] 1 mg PO DAILY 08/08/19 12/23/22 ALPRAZolam [Xanax] 0.25 mg PO BID PRN 12/03/21 12/23/22 Alendronate Sodium 70 mg PO LEWIS 12/03/21 12/23/22 Levothyroxine Sodium [Synthroid] 25 mcg PO DAILY 12/03/21 12/23/22 Levothyroxine Sodium [Synthroid] 137 mcg PO DAILY 12/03/21 12/23/22 Calcium Carbonate [Calcium] 1,200 mg PO DAILY 10/17/22 12/23/22 Cholecalciferol [Vitamin D3 (25 25 mcg PO DAILY 10/17/22 12/23/22 Mcg = 1000 Iu)] Previous Rx's Medication Instructions Recorded Aspirin 81 mg PO DAILY 30 Days #30 tab 10/19/22 Atorvastatin [Lipitor] 40 mg PO HS 30 Days #30 tab 10/19/22 Allergies Allergy/AdvReac Type Severity Reaction Status Date / Time adhesive tape Allergy Rash/Hives Verified 07/27/24 08:36 bacitracin Allergy Rash/Hives Verified 07/27/24 08:36 [From Neosporin ([id number])] neomycin Allergy Rash/Hives Verified 07/27/24 08:36 [From Neosporin ([id number])] polymyxin B Allergy Rash/Hives Verified 07/27/24 08:36 [From Neosporin ([id number])] sulfamethoxazole Allergy Itching Verified 07/27/24 08:36 [From Bactrim] trimethoprim [From Bactrim] Allergy Itching Verified 07/27/24 08:36 Review of Systems ROS Statement: Those systems with pertinent positive or pertinent negative responses have been documented in the HPI. ROS Other: All systems not noted in ROS Statement are negative. Past Medical History Past Medical History: Cancer, CVA/TIA, Deep Vein Thrombosis (DVT), GERD/Reflux, Hyperlipidemia, Thyroid Disorder Additional Past Medical History / Comment(s): melanoma - 2010 on back, left breast Ca - 2017Oct 2022 tia no residual,l leg dvt 12/2021 History of Any Multi-Drug Resistant Organisms: None Reported Past Surgical History: Appendectomy, Breast Surgery, Section, Ort hopedic Surgery, Tubal Ligation Additional Past Surgical History / Comment(s): hx melanoma removed from back in 2010. Total thyroidectomy 1995. Left breast mastectomy 2017 with reconstruction. Right breast reduction February 2019. lft knee arthroscopy, Past Anesthesia/Blood Transfusion Reactions: Postoperative Nausea & Vomiting (PONV) Past Psychological History: No Psychological Hx Reported Smoking Status: Never smoker Past Alcohol Use History: Occasional Past Drug Use History: None Reported - Past Family History Mother Family Medical History: Cancer Additional Family Medical History / Comment(s): leukemia General Exam Limitations: no limitations General appearance: alert, in no apparent distress Head exam: Present: atraumatic, normocephalic, normal inspection Neck exam: Present: normal inspection. Absent: tenderness, meningismus, lymphadenopathy Respiratory exam: Present: normal lung sounds bilaterally. Absent: respiratory distress, wheezes, rales, rhonchi, stridor Cardiovascular Exam: Present: regular rate, normal rhythm, normal heart sounds. Absent: systolic murmur, diastolic murmur, rubs, gallop, clicks GI/Abdominal exam: Present: soft, normal bowel sounds. Absent: distended, tenderness, guarding, rebound, rigid Back exam: Present: full ROM, tenderness, CVA tenderness (L), paraspinal tenderness. Absent: CVA tenderness (R), vertebral tenderness Neurological exam: Present: alert, oriented X3, CN II-XII intact, reflexes normal. Absent: motor sensory deficit Course Vital Signs 07/27/24 07/27/24 08:31 11:12 Temperature 97.7 F Pulse Rate 66 62 Respiratory 18 18 Rate Blood Pressure 160/82 147/81 O2 Sat by Pulse 98 99 Oximetry Medical Decision Making - Medical Decision Making Was pt. sent in by a medical professional or institution (TOAMS Hopson, HEALTH EVALUATOR, urgent care, hospital, or care home...) When possible be specific @ -No Did you speak to anyone other than the patient for history (EMS, parent, family, police, friend...)? What history was obtained from this source @ -No Did you review nursing and triage notes (agree or disagree)? Why? @ -I reviewed and agree with nursing and triage notes Were old charts reviewed (outside hosp., previous admission, EMS record, old EKG, old radiological studies, urgent care reports/EKG's, care home records)? Report findings @ -No old charts were reviewed Differential Diagnosis (chest pain, altered mental status, abdominal pain women, abdominal pain men, vaginal bleeding, weakness, fever, dyspnea, syncope, headache, dizziness, GI bleed, back pain, seizure, CVA, palpatations, mental health, musculoskeletal)? @ -Differential Abdominal Pain Women: Appendicitis, Cholecystitis, diverticulosis, ischemic bowel, pancreatitis, hepatitis, UTI, gastroenteritis, AAA, incarcerated hernia, bowel obstruction, constipation, inflammatory bowel, hepatitis, peptic ulcer disease, splenic infarction, perforated viscus, vulvitis, ovarian torsion, PID, kidney stone, placenta abruption, this is not meant to be an all-inclusive list EKG interpreted by me (3pts min.). @ -None X-rays interpreted by me (1pt min.). @ -None done CT interpreted by me (1pt min.). @ -CT abdomen pelvis showing no acute intra-abdominal process or small gallstone noted, there is a pulmonary nodule noted U/S interpreted by me (1pt. min.). @ -None done What testing was considered but not performed or refused? (CT, X-rays, U/S, labs)? Why? @ -None What meds were considered but not given or refused? Why? @ -None Did you discuss the management of the patient with other professionals (professionals i.e. TOMAS Hopson, HEALTH EVALUATOR, lab, RT, psych nurse, aids social worker, freelance interpreter/translator, teacher, plain clothes police officer, case reviewer)? Give summary @ -No Was smoking cessation discussed for >3mins.? @ -No Was critical care preformed (if so, how long)? @ -No Were there social determinants of health that impacted care today? How? (Homelessness, low income, unemployed, alcoholism, drug addiction, dimas sportation, low edu. Level, literacy, decrease access to med. care, skilled nursing, rehab)? @ -No Was there de-escalation of care discussed even if they declined (Discuss DNR or withdrawal of care, Hospice)? DNR status @ -No What co-morbidities impacted this encounter? (DM, HTN, Smoking, COPD, CAD, Cancer, CVA, ARF, Chemo, Hep., AIDS, mental health diagnosis, sleep apnea, morbid obesity)? @ -None Was patient admitted / discharged? Hospital course, mention meds given and route, prescriptions, significant lab abnormalities, going to OR and other pertinent info. @ -[Discharge patient's had incidental findings on CT patient was notified of this she agrees to follow-up outpatient for CT of the chest. This may be musculoskeletal pain we discussed possible early shingles. Patient discharged in stable condition Undiagnosed new problem with uncertain prognosis? @ -No Drug Therapy requiring intensive monitoring for toxicity (Heparin, Nitro, Insulin, Cardizem)? @ -No Were any procedures done? @ -No Diagnosis/symptom? @ -Pain flank Acute, or Chronic, or Acute on Chronic? @ -Acute Uncomplicated (without systemic symptoms) or Complicated (systemic symptoms)? @ -Uncomplicated Side effects of treatment? @ -No Exacerbation, Progression, or Severe Exacerbation? @ -No Poses a threat to life or bodily function? How? (Chest pain, [place], PR, pneumonia, PE, COPD, DKA, ARF, appy, cholecystitis, CVA, Diverticulitis, Homicidal, Suicidal, threat to staff... and all critical care pts) @ -No - Lab Data Result diagrams: 07/27/24 09:26 07/27/24 09: Lab Results 07/27/24 07/27/24 07/27/24 Range/Units 09:08 09: 09:26 WBC 7.8 (3.8-10.6) k/uL RBC 4.96 (3.80-5.40) m/uL Hgb 14.3 (11.4-16.0) gm/dL Hct 42.0 (34.0-46.0) % MCV 84.7 (80.0-100.0) fL MCH 28.8 (25.0-35.0) pg MCHC 33.9 (31.0-37.0) g/dL RDW 13.9 (11.5-15.5) % Plt Count 240 (150-450) k/uL MPV 8.2 Neutrophils % 74 % Lymphocytes % 19 % Monocytes % 3 % Eosinophils % 3 % Basophils % 0 % Neutrophils # 5.8 (1.3-7.7) k/uL Lymphocytes # 1.5 (1.0-4.8) k/uL Monocytes # 0.2 (0-1.0) k/uL Eosinophils # 0.3 (0-0.7) k/uL Basophils # 0.0 (0-0.2) k/uL Sodium 140 (137-145) mmol/L Potassium 5.1 (3.5-5.1) mmol/L Chloride 109 H (98-107) mmol/L Carbon Dioxide 25 (22-30) mmol/L Anion Gap 6 mmol/L BUN 19 H (7-17) mg/dL Creatinine 0.60 (0.52-1.04) mg/dL Est GFR (CKD-EPI)AfAm >90 (>60 ml/min/1.73 sqM) Est GFR (CKD-EPI)NonAf >90 (>60 ml/min/1.73 sqM) Glucose 97 (74-99) mg/dL Plasma Lactic Acid [place] (0.7-2.0) mmol/L Calcium 9.0 (8.4-10.2) mg/dL Total Bilirubin 1.0 (0.2-1.3) mg/dL AST 38 H (14-36) U/L ALT 25 (4-34) U/L Alkaline Phosphatase 104 (38-126) U/L Troponin I (0.000-0.034) ng/mL Total Protein 7.9 (6.3-8.2) g/dL Albumin 4.6 (3.5-5.0) g/dL Lipase 80 (23-300) U/L Urine Color Light Yellow Urine Appearance CLR (Clear) Urine pH 7.5 (5.0-8.0) Ur Specific [place] 1.011 (1.001-1.035) Urine Protein Negative (Negative) Urine Glucose (UA) Negative (Negative) Urine Ketones Negative (Negative) Urine Blood Negative (Negative) Urine Nitrite Negative (Negative) Urine Bilirubin Negative (Negative) Urine Urobilinogen <2.0 (<2.0) mg/dL Ur Leukocyte Esterase Negative (Negative) 07/27/24 07/27/24 Range/Units 09:26 09:26 WBC (3.8-10.6) k/uL RBC (3.80-5.40) m/uL Hgb (11.4-16.0) gm/dL Hct (34.0-46.0) % MCV (80.0-100.0) fL MCH (25.0-35.0) pg MCHC (31.0-37.0) g/dL RDW (11.5-15.5) % Plt Count (150-450) k/uL MPV Neutrophils % % Lymphocytes % % Monocytes % % Eosinophils % % Basophils % % Neutrophils # (1.3-7.7) k/uL Lymphocytes # (1.0-4.8) k/uL Monocytes # (0-1.0) k/uL Eosinophils # (0-0.7) k/uL Basophils # (0-0.2) k/uL Sodium (137-145) mmol/L Potassium (3.5-5.1) mmol/L Chloride (98-107) mmol/L Carbon Dioxide (22-30) mmol/L Anion Gap mmol/L BUN (7-17) mg/dL Creatinine (0.52-1.04) mg/dL Est GFR (CKD-EPI)AfAm (>60 ml/min/1.73 sqM) Est GFR (CKD-EPI)NonAf (>60 ml/min/1.73 sqM) Glucose (74-99) mg/dL Plasma Lactic Acid [place] 1.2 (0.7-2.0) mmol/L Calcium (8.4-10.2) mg/dL Total Bilirubin (0.2-1.3) mg/dL AST (14-36) U/L ALT (4-34) U/L Alkaline Phosphatase (38-126) U/L Troponin I 0.019 (0.000-0.034) ng/mL Total Protein (6.3-8.2) g/dL Albumin (3.5-5.0) g/dL Lipase (23-300) U/L Urine Color Urine Appearance (Clear) Urine pH (5.0-8.0) Ur Specific [place] (1.001-1.035) Urine Protein (Negative) Urine Glucose (UA) (Negative) Urine Ketones (Negative) Urine Blood (Negative) Urine Nitrite (Negative) Urine Bilirubin (Negative) Urine Urobilinogen (<2.0) mg/dL Ur Leukocyte Esterase (Negative) Disposition Clinical Impression: Left flank pain Disposition: HOME SELF-CARE Condition: Stable Instructions (If sedation given, give patient instructions): Flank Pain (ED) Additional Instructions: please return to the Emergency Department if symptoms worsen or any other concerns. Is patient prescribed a controlled substance at d/c from ED?: No Referrals: Melly Jaimes MD [Primary Care Provider] - 1-2 days Time of Disposition: 11:04
[2024-07-27 09:22] LABS: Appearance,Urine CLR (Clear); Bilirubin,Urine Negative (Negative); Blood,Urine Negative (Negative); Color,Urine Light Yellow; Glucose,Urine (UA) Negative (Negative); Ketones,Urine Negative (Negative); Leukocyte Esterase,Urine Negative (Negative); Nitrite,Urine Negative (Negative); PH, Urine 7.5 (5.0-8.0); Protein,Urine Negative (Negative); Specific Gravity,Urine 1.011 (1.001-1.035); Urobilinogen,Urine <2.0 mg/dL (<2.0)
[2024-07-27 09:38] LABS: Basophils % (A) 0 %; Eosinophils # (A) 0.3 k/uL (0-0.7); Eosinophils % (A) 3 %; HGB 14.3 gm/dL (11.4-16.0); Lymphocytes # (A) 1.5 k/uL (1.0-4.8); Lymphocytes % (A) 19 %; MCH 28.8 pg (25.0-35.0); MCHC 33.9 g/dL (31.0-37.0); MCV 84.7 fL (80.0-100.0); Mean Platelet Volume 8.2; Monocytes # (A) 0.2 k/uL (0-1.0); Monocytes % (A) 3 %; Neutrophils # (A) 5.8 k/uL (1.3-7.7); Neutrophils % (A) 74 %; Platelet Count 240 k/uL (150-450); RBC 4.96 m/uL (3.80-5.40); RDW 13.9 % (11.5-15.5); WBC 7.8 k/uL (3.8-10.6)
[2024-07-27 09:59] LABS: ALT 25 U/L (4-34); African American GFR (CKD) >90 (>60 ml/min/1.73 sqM); Albumin 4.6 g/dL (3.5-5.0); Anion Gap 6 mmol/L; Blood Urea Nitrogen 19 mg/dL (7-17); Carbon Dioxide 25 mmol/L (22-30); Chloride 109 mmol/L (98-107); Glucose 97 mg/dL (74-99); Lipase 80 U/L (23-300); Non-African American GFR(CKD) >90 (>60 ml/min/1.73 sqM); Sodium 140 mmol/L (137-145); Total Protein 7.9 g/dL (6.3-8.2)
[2024-07-27 10:08] LABS: AST 38 U/L (14-36); Alkaline Phosphatase 104 U/L (38-126); Potassium 5.1 mmol/L (3.5-5.1)
--- NOTE | 2024-07-27 10:31 | CT ---
EXAMINATION TYPE: CT abdomen pelvis wo con DATE OF EXAM: 07/27/2024 HISTORY: Lt flank pain CT DLP: 1558.4 mGycm. Automated Exposure Control for Dose Reduction was Utilized. TECHNIQUE: CT scan of the abdomen and pelvis is performed without oral or IV contrast. COMPARISON: None FINDINGS: Within the limitations of a non-contrast study, the following observations are made. There is a 9 mm groundglass density in the right lung base medially. If this is a high risk patient then C T chest is recommended for further evaluation. There is a small gallstone with no gallbladder wall thickening, distention or pericholecystic fluid. There is no biliary ductal dilatation. There is no organomegaly involving the liver, pancreas, spleen or adrenal glands. There are no renal calcifications or hydronephrosis. The bowel loops are normal in caliber and there is no dilatation or obstruction. No inflammatory [place] ges identified within the mesentery. There is no free intraperitoneal air or fluid. There is no pelvic mass, free fluid, abscess or adenopathy. The osseous structures are intact. IMPRESSION: 1. No renal calcification or hydronephrosis. 2. Tiny gallstone. 3. 9 mm groundglass opacity in the right lung base, see above. [facility], , 07/27/2024 10:29 AM
[2024-07-27] MEDS: SODIUM CHLORIDE 0.9% 1,000 ML IV STA (11:03)
[2024-07-27] MEDS: KETOROLAC 15 MG/ML 1 ML VIAL IVP STA (11:03)
[2024-07-27 11:13] VITALS: BP 147/81; PULSE 62
== END 2024-07-27 11:13 | disposition home or self-care (01) ==
LOC: EC 08:30
CPT/HCPCS: 36415; 74176; 80053; 81001; 83605; 83690; 84484; 85025; 93005; 99284

== ENCOUNTER → 2024-07-27 | Outpatient (CLI) | payer BC ==
--- NOTE | 2024-07-27 08:16 | MM ---
Reason for Exam: Clinical finding. Last screening mammogram was performed 8 month(s) ago. Patient History: Menarche at age 10. First Full-Term at age 32. Late child-bearing (after 30). Postmenopausal. Other cancer, age 44. Breast cancer, age 52. Hormonal Contraceptives for 16 years from age 16 until age 33. 02/2019, Reduction on the Right side. 2017, Mastectomy on the Left side. 12/18/2011, Benign Excisional Biopsy on the left side. 04/01/2020, Benign Core Biopsy on the right side. 08/17/2019, Benign Core Biopsy on the left side. 04/18/2018, Core Biopsy on the Left side. 03/09/2018, Benign Cyst Aspiration on the left side. 03/09/2018, Malignant Core Biopsy on the left side. 03/09/2018, Malignant Core Biopsy on the left side. 02/24/2018, Malignant Core Biopsy on the left side. 2017, Implant on the left side. Implant on the left side. Maternal aunt had breast cancer, age 40. Maternal aunt had breast cancer, age 40. Prior Study Comparison: 11/13/2021 Right Diagnostic Mammogram, [facility]. 10/23/2022 Right MG 3D diag mammo w/cad RT, [facility]. 11/11/2023 Right MG 3D diag mammo w/cad RT, [facility]. Tissue Density: Right: There are scattered areas of fibroglandular density. Findings: Analyzed By CAD. No evidence for distinct mass at the site of clinical concern. Ultrasound is recommended. Microclip marker from prior breast biopsy. No mass or distortion seen. No suspicious microcalcifications evident. Overall Assessment: Incomplete: need additional imaging evaluation, BI-RAD 0 Management: Diagnostic Breast Ultrasound of the right breast. . Results were given to the patient verbally at the time of exam. Patient should continue monthly self-breast exams. A clinical breast exam by your physician is recommended on an annual basis. This exam should not preclude additional follow-up of suspicious palpable abnormalities. Note on Yanely scores and lifetime risk: 1. A Yanely score greater than 3% is considered moderate risk. If this is the case, consider specialist referral to assess eligibility for a risk reducing agent. 2. If overall lifetime risk for the development of breast cancer is 20% or higher, the patient may qualify for future screening with alternating mammogram and breast MRI. [facility], , 07/27/2024 8:14 AM. Electronically signed and approved by: Lee Reed M.D. Radiologis
--- NOTE | 2024-07-27 08:30 | USB ---
Reason for Exam: Clinical finding. Patient History: Menarche at age 10. First Full-Term at age 32. Late child-bearing (after 30). Postmenopausal. Other cancer, age 44. Breast cancer, age 52. Hormonal Contraceptives for 16 years from age 16 until age 33. 02/2019, Reduction on the Right side. 2017, Mastectomy on the Left side. 12/18/2011, Benign Excisional Biopsy on the left side. 04/01/2020, Benign Core Biopsy on the right side. 08/17/2019, Benign Core Biopsy on the left side. 04/18/2018, Core Biopsy on the Left side. 03/09/2018, Benign Cyst Aspiration on the left side. 03/09/2018, Malignant Core Biopsy on the left side. 03/09/2018, Malignant Core Biopsy on the left side. 02/24/2018, Malignant Core Biopsy on the left side. 2017, Implant on the left side. Implant on the left side. Maternal aunt had breast cancer, age 40. Maternal aunt had breast cancer, age 40. Technique: Method: Targeted. Prior Study Comparison: 11/13/2021 Right Diagnostic Mammogram, [facility]. 10/23/2022 Right MG 3D diag mammo w/cad RT, [facility]. 11/11/2023 Right MG 3D diag mammo w/cad RT, [facility]. Findings: The upper section of the breast of the right breast, the area of palpable concern of the right breast, the axilla of the right breast and the retroareolar of the right breast were scanned. No solid or cystic masses are identified. Manage clinically. Overall Assessment: Negative, BI-RAD 1 Management: Diagnostic Mammogram of the right breast in 1 year. A clinical breast exam by your physician is recommended on an annual basis and results should be correlated with mammographic findings. This exam should not preclude additional follow-up of suspicious palpable abnormalities. Results were given to the patient verbally at the time of exam. [facility], , 07/27/2024 8:27 AM. Electronically signed and approved by: Lee Reed M.D. Radiologis
== END | disposition home or self-care (01) ==
LOC: RADMAMWWP 07:18
PROVIDERS: ATTEND Obstetrics & Gynecology Obstetrics
DX: Z85.3 Personal history of malignant neoplasm of breast
CPT/HCPCS: 77061; 77065

== ENCOUNTER → 2024-08-16 | Outpatient (CLI) | payer BC ==
--- NOTE | 2024-08-16 11:12 | CT ---
EXAMINATION TYPE: CT chest w con CT DLP: 751 mGycm, Automated exposure control for dose reduction was used. DATE OF EXAM: 08/16/2024 10:55 AM COMPARISON: CTA chest 12/03/2021, CT abdomen and pelvis 07/27/2024 CLINICAL INDICATION:Female, 59 years old with history of R91.1 SOLITARY PULMONARY NODULE; PHH, Solita ry pulmonary nodule, hx breast ca TECHNIQUE: Multiple axial images were obtained through the chest following the administration of 100 cc of Isovue 300. . Coronal and sagittal reformats reviewed. FINDINGS: LUNGS/ PLEURA: No pleural effusion or pneumothorax. Linear scarring within the right middle lobe med ially. Stable scarring within the lingula. Additional stable linear scarring along the medial right l ower lobe corresponding to reported groundglass opacity. No suspicious pulmonary nodules or masses. AIRWAY: Patent and unremarkable.. HEART: Size within normal limits.No pericardial effusion. MEDIASTINUM: No evidence of adenopathy. VASCULATURE: No aortic aneurysm. MUSCULOSKELETAL: No acute osseous abnormalities. DISH of the thoracic spine. SOFT TISSUES/LYMPH NODES: Left breast prosthesis with mastectomy. LOWER NECK: No significant findings. UPPER ABDOMEN: Small hiatal hernia. IMPRESSION: 1. No acute thoracic process. 2. Few scattered stable regions of scarring identified dating back to prior CT 2021. Focal opacity de scribed on prior CT abdomen and pelvis represents stable scarring. No suspicious pulmonary nodules or masses. [facility], , 08/16/2024 11:10 AM
== END | disposition home or self-care (01) ==
LOC: RADCTMAIN 09:23
PROVIDERS: ATTEND Internal Medicine
DX: J98.4 Other disorders of lung (principal); R91.8 Other nonspecific abnormal finding of lung field
CPT/HCPCS: 71260; Q9967

== ENCOUNTER → 2024-09-14 | Outpatient (CLI) | payer BC ==
[2024-09-14 10:40] LABS: Basophils # (A) 0.05 X 10*3/uL (0.00-0.10); Basophils % (A) 0.8 %; Eosinophils # (A) 0.27 X 10*3/uL (0.04-0.35); Eosinophils % (A) 4.1 %; HCT 43.4 % (37.2-46.3); HGB 14.1 g/dL (12.0-15.0); Lymphocytes # (A) 1.64 X 10*3/uL (0.90-5.00); Lymphocytes % (A) 24.7 %; MCH 27.6 pg (27.0-32.0); MCHC 32.5 g/dL (32.0-37.0); MCV 84.9 FL (80.0-97.0); Mean Platelet Volume 10.7 FL (9.5-12.2); Monocytes # (A) 0.43 X 10*3/uL (0.20-1.00); Monocytes % (A) 6.5 %; NRBC Per 100 WBC 0 X 10*3/uL (0.00-0.01); Neutrophils # (A) 4.24 X 10*3/uL (1.80-7.70); Neutrophils % (A) 63.6 %; Platelet Count 237 X 10*3/uL (140-440); RBC 5.11 X 10*6/uL (4.10-5.20); RDW 13.2 % (11.5-14.5); WBC 6.65 X 10*3/uL (4.50-10.00)
[2024-09-14 16:42] LABS: ALT 49 U/L (8-44); AST 38 U/L (13-35); Albumin 4.3 g/dL (3.8-4.9); Albumin/Globulin Ratio 1.54 Ratio (1.60-3.17); Alkaline Phosphatase 103 U/L (41-126); BUN/Creat Ratio 20.12 Ratio (12.00-20.00); Blood Urea Nitrogen 16.1 mg/dL (9.0-27.0); Calcium 9.3 mg/dL (8.7-10.3); Carbon Dioxide 22.2 mmol/L (21.6-31.8); Chloride 106 mmol/L (96-109); Chol/HDL Ratio 3.35 Ratio; Creatine Kinase 80 U/L (26-186); Globulin 2.8 g/dL (1.6-3.3); Glucose 105 mg/dL (70-110); LDL Cholesterol,Calculated 78.4 mg/dL (0.0-131.0); Magnesium 1.9 mg/dL (1.5-2.4); Potassium 4.5 mmol/L (3.5-5.5); Sodium 141 mmol/L (135-145); Total Bilirubin 0.6 mg/dL (0.3-1.2); Total Protein 7.1 g/dL (6.2-8.2)
[2024-09-14 19:41] LABS: NT-Pro-B-Type Natriuretic Pept 72 pg/mL (0-125)
== END | disposition home or self-care (01) ==
LOC: LABWHC1 08:12
PROVIDERS: ATTEND Internal Medicine
DX: I34.0 Nonrheumatic mitral (valve) insufficiency (principal); E03.9 Hypothyroidism, unspecified; K21.9 Gastro-esophageal reflux disease without esophagitis; E55.9 Vitamin D deficiency, unspecified; R73.01 Impaired fasting glucose; F41.9 Anxiety disorder, unspecified; C50.912 Malignant neoplasm of unspecified site of left female breast
CPT/HCPCS: 36415; 80053; 80061; 82306; 82550; 83036; 83735; 83880; 84443; 85025